=== PATIENT | female | born 1990 | race Caucasian/White ===

== ENCOUNTER 2022-02-20 15:29 | Emergency (ER) | payer MEDICAID, SELFPAY ==
[2022-02-20 15:42] VITALS: BP 97/68; PULSE 102; RESP 16; TEMP 37.6; O2SAT 98
--- NOTE | 2022-02-20 16:58 | ED.GENADUL_ITS ---
Discharge Plan Disposition Patient Disposition: HOME Condition: Stable Discharge Details Clinical Impression: Upper respiratory infection Primary Care Provider: None,None ED Provider: Dilma Soto Home Meds and New Rx's Prescriptions: New ondansetron 4 mg tablet,disintegrating 4 mg PO Q8H PRNQty: 10 0RF Discharge Instructions Instructions: Upper Respiratory Infection (ED) Additional Instructions: Take ibuprofen and Tylenol as needed for fever control Keep your self hydrated Take Zofran as needed for nausea and vomiting Isolate until the results of your COVID test returns Return earlier should you have new or worsening complaints You have been placed for follow-up with primary care physician to establish care Stand Alone Forms: PENDING COVID-19 TESTING, Work Release Discharge Data Discharge Date/Time-TO BE ENTERED AT DEPARTURE: 02/20/22 17:33 HPI General Date/Time Provider Initiated Documentation: 02/20/22 15:47 . HPI Narrative: This 31-year-old female presents with cold symptoms of started on Friday. She presents for fever and runny nose. She is also had sore throat. She has had intermittent nausea without vomiting. She denies any chance of . She denies any rashes or lesions. Her daughter is reportedly sick with similar symptoms. She had a COVID test at home that was reportedly negative. She denies any chest pain or shortness of breath. She has any rashes or lesions. She states she feels tired. Related Data Home Medications Medication Instructions Recorded Confirmed ondansetron 4 mg disintegrating 4 mg PO Q8H PRN #10 tabs 02/20/22 tablet Previous Rx's Medication Instructions Recorded ondansetron 4 mg disintegrating 4 mg PO Q8H PRN #10 tabs 02/20/22 tablet Allergies Allergy/AdvReac Type Severity Reaction Status Date / Time omeprazole AdvReac Intermediate rash/swelling Unverified 02/20/22 15:50 in tongue/dizzy valerian AdvReac Intermediate stomach Unverified 02/20/22 15:50 issues amoxicillin AdvReac Unknown Unverified 02/20/22 15:50 General Stated Complaint: RespSymp RUTH: 3 Review of Systems All systems reviewed & are unremarkable except as noted in HPI and below PFSH All Active Problems (Updated 02/20/22 @ 17:01 by RUTH ANN Dumont) Upper respiratory infection (Acute) Social History Smoking/Tobacco Use Status: Current-Occasional Tobacco Type: cigars Smoking risk assessment performed?: Yes Alcohol Intake: current Alcohol Intake frequency: holidays/special occasions only Drug use: Never Substance use type: does not use Do you feel safe at home: Yes Do you feel safe in your relationship?: Yes Exam Const General: cooperative, comfortable and no acute distress HENMT Other: Uvula midline, maintaining secretions No trismus, maintaining hydration, no appetite Resp Effort & Inspection: normal respiratory effort Cardio Rate: regular rate GI Inspection: normal to inspection Skin General skin exam: no rashes or lesions noted Neuro General: patient alert and patient oriented x3 Course Vital Signs Vital signs: Vital Signs Temperature 37.6 C H 02/20/22 15:42 Pulse 102 H 02/20/22 15:42 Respiratory Rate 16 02/20/22 15:42 Blood Pressure 97/68 L 02/20/22 15:42 Pulse Oximetry 98 02/20/22 15:42 Temperature 37.6 C H 02/20/22 15:42 Temperature Source Tympanic 02/20/22 15:42 Pulse 102 H 02/20/22 15:42 Respiratory Rate 16 02/20/22 15:42 Respiratory Effort 02/20/22 15:53 Blood Pressure 97/68 L 02/20/22 15:42 Blood Pressure Position Sitting 02/20/22 15:42 Pulse Oximetry 98 02/20/22 15:42 Oxygen Delivery Method Room Air 02/20/22 15:42 Oxygen Flow Rate 0 02/20/22 15:42 Pain Level 7 02/20/22 15:42 Comment has not taken otc medications recently 02/20/22 15:42
--- NOTE | 2022-02-20 16:58 | NUR.NOTE ---
Nursing Note: Referral given to Care Management for needs PCP; establish care; routine follow up.
[2022-02-20 17:07] LABS: Source Nasal/Nares
[2022-02-20 17:47] LABS: COVID-19 PCR Negative (Negative)
--- NOTE | 2022-02-24 10:52 | CMACTNOTE_ITS ---
- If Service Date Differs Date of service: 02/24/22 Time of Service: 10:52 Care Management Activity Note Annabel is seen in the ED for an upper respiratory infection. At the request of ED provider, CM coordinates a referral to MIRNA Connor, [employer]GY CONSERVATION TECHNICIAN-BC, of [facility], on-call provider, to assist Annabel in obtaining a follow up appointment and in establishing care with a PCP. She has Medicaid for insurance.
== END 2022-02-20 17:33 | disposition home or self-care (01) ==
PROVIDERS: Emergency Provider Physician Assistant
DX: J06.9 Acute upper respiratory infection, unspecified (principal); R11.2 Nausea with vomiting, unspecified; F17.290 Nicotine dependence, other tobacco product, uncomplicated; Z20.822 Contact with and (suspected) exposure to COVID-19
CPT/HCPCS: 87635; 99283; 99284

== ENCOUNTER 2022-05-03 01:40 | Emergency (ER) | payer MEDICAID, SELFPAY ==
[2022-05-03 01:40] VITALS: BP 138/83; PULSE 84; RESP 16; TEMP 37; O2SAT 100
--- NOTE | 2022-05-03 01:45 | DI.RAD_ITS ---
Exam(s) XR RIBS LT W PA LAT CHEST EXAM: XR RIBS LT W PA LAT CHEST CLINICAL HISTORY: cough, left rib pain, r/o pneumonia/ fracture. TECHNIQUE: 2D digital imaging was performed. COMPARISON: No exams were available for comparison FINDINGS: Total 7 views: Left ribs-five views: No left rib fractures identified. No rib lesions. Chest-two views: Heart size normal. Mediastinum not widened. Lungs are clear. No pleural effusions . No pneumothorax. IMPRESSION: No left rib fracture seen. Lungs are clear. DATA REPOSITORY: RADIATION DOSE DELIVERED:
[2022-05-03] MEDS: Lidocaine 5% Patch 1 PATCH (02:02)
--- NOTE | 2022-05-03 02:05 | ED.GENADUL_ITS ---
Discharge Plan Disposition Patient Disposition: HOME Condition: Good Discharge Details Clinical Impression: Rib pain on left side Primary Care Provider: Unknown,Unknown ED Provider: Shan Monahan Home Meds and New Rx's Prescriptions: New benzonatate 100 mg capsule 100 mg PO TID Qty: 30 0RF lidocaine [Lidoderm] 5 % adhesive patch,medicated 1 patch Topical Q24H Qty: 15 0RF No Action ondansetron 4 mg tablet,disintegrating 4 mg PO Q8H PRNQty: 10 0RF Discharge Instructions Instructions: Chest Wall Pain (ED) Additional Instructions: At this time the chest x-ray shows no evidence of major pneumonia, fracture, or other abnormality. You may certainly have a small rib fracture that we just cannot see on the x-rays. Please use the Lidoderm patches as directed. Please continue to take Tylenol and Motrin as needed. Additionally I have sent a prescription for a cough pill to your pharmacy on file. Please take this as directed to help with your cough. If you notice any worsening of your symptoms, or any new symptoms such as vomiting, diarrhea, fever, chills, shortness of breath, chest pain, numbness, weakness, or fainting , please return immediately to the emergency department for reevaluation. Please follow up with your primary care provider as soon as possible for reassessment and reevaluation. As always, it was a pleasure participating in your medical care today. Medical Decision Making 31-year-old female with a past medical history of tobacco use, presents today for left rib pain. Patient has had a mild cough/upper respiratory infection for the last few weeks. It is gradually been stable/improving however today during one of her normal morning coughing episode she felt a snap/pop in her left ribs, and shortly thereafter developed notable pain which is worsened throughout the day. She has taken Tylenol and Motrin without significant improvement. Pain is made worse with movement and palpation of the left ribs, and also breathing and coughing. She denies any history of blood clots or PE. She denies any hemoptysis. She denies any fever or chills. No other complaints at this time. No other generalized chest pain. Chest pain is focal into the left by the ribs Physical exam demonstrates focal left-sided rib tenderness at ribs 6 and 7. No pain above or below that area. No other tenderness. No rash. No diminished lung sounds to suggest significant pneumothorax. Symptoms inconsistent with PE. Symptoms most concerning for rib sprain, or potential rib fracture from cough. We will get an x-ray to evaluate for this, and also check for potential pneumonia that could have been causing the cough. We will give Lidoderm patch, Tessalon Perle, monitor closely and reassess. Symptoms inconsistent with ACS 4:22 AM Patient is feeling much better after the Tessalon Perle and the Lidoderm patch. Chest x-ray and rib x-ray are negative for acute process per virtual radiology. Patient stable for discharge. Suspect rib contusion or small fracture that we cannot see. No pneumothorax. Potential muscle strain. Will give Tessalon Perles and a Lidoderm patch for home use. I have extensively reviewed the treatment plan and discharge instructions with the patient. I have addressed all patient concerns at this time. The patient was made aware of what symptoms to monitor for that would warrant a return to the emergency department. Discussed the plan with the patient, they demonstrate verbal understanding and agreement with our assessment and plan at this time. The documentation in this chart was dictated using Cover dictation software. Please excuse any dictation errors. FINDINGS: Bones/joints: No left rib fractures are identified. Soft tissues: Unremarkable. IMPRESSION: No left rib fractures identified. FINDINGS: Lungs: The lungs are clear and well aerated bilaterally. There is no consolidation, infiltrate, or pulmonary edema. The pulmonary vasculature is normal in caliber. Pleural spaces: Unremarkable. No pleural effusion or pneumothorax. Heart/Mediastinum: Heart size and cardiomediastinal contours are normal. Bones/joints: Unremarkable. IMPRESSION: No active disease in the chest. Thank you for allowing us to participate in the care of your patient. Dictated and Authenticated by: Amaris Hale MD 05/03/2022 4:20 AM Eastern Time ([place] & [place]) HPI General Date/Time Provider Initiated Documentation: 05/03/22 01:50 . HPI Narrative: 31-year-old female with a past medical history of tobacco use, presents today for left rib pain. Patient has had a mild cough/upper respiratory infection for the last few weeks. It is gradually been stable/improving however today during one of her normal morning coughing episode she felt a snap/pop in her left ribs, and shortly thereafter developed notable pain which is worsened throughout the day. She has taken Tylenol and Motrin without significant improvement. Pain is made worse with movement and palpation of the left ribs, and also breathing and coughing. She denies any history of blood clots or PE. She denies any hemoptysis. She denies any fever or chills. No other complaints at this time. No other generalized chest pain. Chest pain is focal into the left by the ribs Related Data Home Medications Medication Instructions Recorded Confirmed ondansetron 4 mg disintegrating 4 mg PO Q8H PRN #10 tabs 02/20/22 05/03/22 tablet benzonatate 100 mg capsule 100 mg PO TID #30 caps 05/03/22 lidocaine 5 % topical patch 1 patch topical Q24H #15 ea 05/03/22 (Lidoderm) Previous Rx's Medication Instructions Recorded ondansetron 4 mg disintegrating 4 mg PO Q8H PRN #10 tabs 02/20/22 tablet benzonatate 100 mg capsule 100 mg PO TID #30 caps 05/03/22 lidocaine 5 % topical patch 1 patch topical Q24H #15 ea 05/03/22 (Lidoderm) Allergies Allergy/AdvReac Type Severity Reaction Status Date / Time omeprazole AdvReac Intermediate rash/swelling Unverified 05/03/22 01:47 in tongue/dizzy valerian AdvReac Intermediate stomach Unverified 05/03/22 01:47 issues amoxicillin AdvReac Unknown Unverified 05/03/22 01:47 General Stated Complaint: Chest/Rib RUTH: 3 Review of Systems All systems reviewed & are unremarkable except as noted in HPI and below PFSH All Active Problems (Updated 05/03/22 @ 04:03 by Shan Monahan DO) Rib pain on left side (Acute) Social History Smoking/Tobacco Use Status: Current-Occasional Tobacco Type: cigars Smoking risk assessment performed?: Yes Alcohol Intake: current Alcohol Intake frequency: holidays/special occasions only Drug use: Never Substance use type: does not use Do you feel safe at home: Yes Do you feel safe in your relationship?: Yes Exam Narrative Exam Narrative: 1.Const: Well-nourished, Well-developed, appearing stated age 2.Eyes: PERRL, no conjunctival injection, and symmetrical lids. 3.ENT: Atraumatic external nose and ears. Moist MM. Neck: Symmetric, trachea midline, No thyromegaly. 4.CVS: +S1/S2, No murmurs or gallops. Peripheral pulses 2+ and equal in all extremities. Brisk capillary refill in all extremities. 5.RESP: Unlabored respiratory effort. Clear to auscultation bilaterally. No wheezes rales or rhonchi. Notable reproducible left-sided rib tenderness at ribs 6 and 7 on the left lateral aspect. No pain at rib 8 or rib 5. Pain is focal. No rash 6.GI: Soft, Nontender/Nondistended, No hepatosplenomegaly. No guarding or rebound. 7.MSK: Normocephalic/Atraumatic, Extremities w/o deformity or ttp No cyanosis or clubbing, Normal movement of all extremities 8.Skin: Warm, Dry. No rashes or lesions. 9.Neuro: technical support representative II-XII grossly intact. Sensation grossly intact, no focal neurologic deficits. 10.Psych: (AAO) x3. Appropriate mood and affect Course Vital Signs Vital signs: Vital Signs Temperature 37.0 C 05/03/22 01:40 Pulse 84 05/03/22 01:40 Respiratory Rate 16 05/03/22 01:40 Blood Pressure 138/83 05/03/22 01:40 Pulse Oximetry 100 05/03/22 01:40 Temperature 37.0 C 05/03/22 01:40 Temperature Source Temporal Artery Scan 05/03/22 01:40 Pulse 84 05/03/22 01:40 Respiratory Rate 16 05/03/22 01:40 Respiratory Effort 05/03/22 01:47 Respiratory Depth Normal 05/03/22 01:47 Respiratory Pattern Normal 05/03/22 01:47 Blood Pressure 138/83 05/03/22 01:40 Blood Pressure Position Sitting 05/03/22 01:40 Pulse Oximetry 100 05/03/22 01:40 Oxygen Delivery Method Room Air 05/03/22 01:40 Oxygen Flow Rate 0 05/03/22 01:40 Pain Level 10 05/03/22 01:47
[2022-05-03] MEDS: Benzonatate 100 MG CAP PO (02:12)
[2022-05-03 02:44] LABS: COVID-19 PCR Negative (Negative); Influenza A PCR Negative (Negative); Influenza B PCR Negative (Negative); RSV PCR Negative (Negative)
[2022-05-03 02:46] LABS: Source Nasopharynx
--- NOTE | 2022-05-03 04:21 | DI.VRAD_ITS ---
PROCEDURE INFORMATION: Exam: XR Left Ribs Exam date and time: 05/03/2022 2:59 AM Age: 31 years old Clinical indication: Other: Cough, left rib pain, R/O pneumonia/ fracture TECHNIQUE: Imaging protocol: Radiologic exam of the Left ribs. Views: 2 views. COMPARISON: No relevant prior studies available. FINDINGS: Bones/joints: No left rib fractures are identified. Soft tissues: Unremarkable. IMPRESSION: No left rib fractures identified. PROCEDURE INFORMATION: Exam: XR Chest Exam date and time: 05/03/2022 2:59 AM Age: 31 years old Clinical indication: Other: Cough, left rib pain, R/O pneumonia/ fracture TECHNIQUE: Imaging protocol: Radiologic exam of the chest. Views: 2 views. COMPARISON: No relevant prior studies available. FINDINGS: Lungs: The lungs are clear and well aerated bilaterally. There is no consolidation, infiltrate, or pulmonary edema. The pulmonary vasculature is normal in caliber. Pleural spaces: Unremarkable. No pleural effusion or pneumothorax. Heart/Mediastinum: Heart size and cardiomediastinal contours are normal. Bones/joints: Unremarkable. IMPRESSION: No active disease in the chest. Dictated and Authenticated by: Amaris Hale MD. Ordering:HANY Torrez MD
[2022-05-03 05:18] VITALS: BP 101/61; PULSE 94; RESP 18; O2SAT 94
--- NOTE | 2022-05-04 07:34 | NUR.NOTE ---
Nursing Note: MARIJA Maloney, called asking for patients Medicaid number so that they could put her in their system. She was picked up by MARIJA yesterday morning around 0530. I gave them the number.
== END 2022-05-03 05:21 | disposition home or self-care (01) ==
PROVIDERS: Emergency Provider Student in an Organized Health Care Education/Training Program
DX: G89.11 Acute pain due to trauma (principal); R07.81 Pleurodynia; Z20.822 Contact with and (suspected) exposure to COVID-19; X50.1XXA Overexertion from prolonged static or awkward postures, initial encounter
CPT/HCPCS: 87637; 99283; 71046; 71100; 99284

== ENCOUNTER 2023-02-27 17:56 | Emergency (ER) | payer MEDICAID, SELFPAY ==
[2023-02-27 18:06] VITALS: BP 91/61; PULSE 89; RESP 18; TEMP 36.9; O2SAT 97
--- NOTE | 2023-02-27 18:20 | ED.GENADUL_ITS ---
Discharge Plan Disposition Patient Disposition: Home Condition: Good Discharge Details Clinical Impression: Ear pain, left Primary Care Provider: None,None ED Provider: Alba Singh Home Meds and New Rx's Prescriptions: New cetirizine 10 mg tablet,chewable 10 mg PO DAILY Qty: 14 0RF cefdinir 300 mg capsule 300 mg PO BID Qty: 10 0RF No Action ondansetron 4 mg tablet,disintegrating 4 mg PO Q8H PRNQty: 10 0RF benzonatate 100 mg capsule 100 mg PO TID Qty: 30 0RF lidocaine [Lidoderm] 5 % adhesive patch,medicated 1 patch Topical Q24H Qty: 15 0RF Discharge Instructions Instructions: Earache (ED) Additional Instructions: Follow up with your primary care doctor as soon as you are able to see them. return to the emergency department for new or worsening symptoms. Medical Decision Making 32yo previously healthy female presenting this three weeks of left ear stuffiness and muffled hearing'; occasional twinges of sharp pain inside her ear. Vital signs reassuring. No clear otitis media on exam; there is some effusion. + ear wax but not in a quantity to affect hearing. No visualized otitis externa or choleostoma. Mastoid nontender; not concerned for mastoiditis. Patient strongly prefers antibiotic treatment and is not able to see her PCP for the next three weeks; out of an abundance of caution will treat with short course of cefdnir (pt with allergy to amoxicillin). Cetirizine as well for symptoms. Discharged home; discharge instructions including return precautions were reviewed with patient who verbalized understanding. All questions were answered and they are in full agreement with the plan. HPI General Date/Time Provider Initiated Documentation: 02/27/23 18:10 . Limitations to Documentation: no limitations . Information obtained by: patient . HPI Narrative: 32yo previously healthy female presenting this three weeks of left ear stuffiness. Occasional twinges of sharp pain inside her ear. Has tried rubbing her ear with no relief. Reports frequent ear infections as a child that felt similar. Does not currently have a PCP (1st appointment scheduled in March). She is otherwise in her usual state of health with no fevers, chills, rash, malaise, headache, external ear pain, or other concerns. Related Data Home Medications Medication Instructions Recorded Confirmed ondansetron 4 mg disintegrating 4 mg PO Q8H PRN #10 tabs 02/20/22 05/03/22 tablet benzonatate 100 mg capsule 100 mg PO TID #30 caps 05/03/22 lidocaine 5 % topical patch 1 patch topical Q24H #15 ea 05/03/22 (Lidoderm) cefdinir 300 mg capsule 300 mg PO BID #10 caps 02/27/23 cetirizine 10 mg chewable tablet 10 mg PO DAILY #14 tabs 02/27/23 Previous Rx's Medication Instructions Recorded ondansetron 4 mg disintegrating 4 mg PO Q8H PRN #10 tabs 02/20/22 tablet benzonatate 100 mg capsule 100 mg PO TID #30 caps 05/03/22 lidocaine 5 % topical patch 1 patch topical Q24H #15 ea 05/03/22 (Lidoderm) cefdinir 300 mg capsule 300 mg PO BID #10 caps 02/27/23 cetirizine 10 mg chewable tablet 10 mg PO DAILY #14 tabs 02/27/23 Allergies Allergy/AdvReac Type Severity Reaction Status Date / Time omeprazole AdvReac Intermediate rash/swelling Unverified 05/03/22 01:47 in tongue/dizzy valerian AdvReac Intermediate stomach Unverified 05/03/22 01:47 issues amoxicillin AdvReac Unknown Unverified 05/03/22 01:47 General Stated Complaint: EarProblem RUTH: 4 Review of Systems Narrative: see HPI PFSH All Active Problems (Updated 02/27/23 @ 18:23 by Alba Singh MD) Ear pain, left (Acute) Social History Smoking/Tobacco Use Status: Current-Occasional Tobacco Type: cigars Smoking risk assessment performed?: Yes Alcohol Intake: current Alcohol Intake frequency: holidays/special occasions only Drug use: Never Substance use type: does not use Do you feel safe at home: Yes Do you feel safe in your relationship?: Yes Exam Narrative Exam Narrative: General: Alert, well appearing, well nourished, in no acute distress. Head: Normocephalic, atraumatic Neck: Trachea midline, Neck supple. ENT: MMM. No oropharygeal lesions or exudate. Right TM clear. Left TM with no injection, slight bulging. +wax in ear canal Cardiac: No cyanosis Resp: No respiratory distress. Speaking in full sentences. Abd: Non-distended Extremities: No deformities. Neurologic: GCS 15. Moves all extremities freely against gravity Course Vital Signs Vital signs: Vital Signs Temperature 36.9 C 02/27/23 18:06 Pulse 89 02/27/23 18:06 Respiratory Rate 18 02/27/23 18:06 Blood Pressure 91/61 L 02/27/23 18:06 Pulse Oximetry 97 02/27/23 18:06 Temperature 36.9 C 02/27/23 18:06 Pulse 89 02/27/23 18:06 Respiratory Rate 18 02/27/23 18:06 Respiratory Effort Normal, Non-Labored 02/27/23 18:11 Blood Pressure 91/61 L 02/27/23 18:06 Blood Pressure Position Sitting 02/27/23 18:06 Pulse Oximetry 97 02/27/23 18:06 Oxygen Delivery Method Room Air 02/27/23 18:06 Oxygen Flow Rate 0 02/27/23 18:06 Pain Level 0 02/27/23 18:06
[2023-02-27] MEDS: Cetirizine 10 MG TAB PO (19:05)
[2023-02-27] MEDS: Cefdinir 300 MG CAP 600 MG PO (19:05)
== END 2023-02-27 19:11 | disposition home or self-care (01) ==
PROVIDERS: Emergency Provider Student in an Organized Health Care Education/Training Program
DX: H92.02 Otalgia, left ear (principal); F17.290 Nicotine dependence, other tobacco product, uncomplicated
CPT/HCPCS: 99283; 99282

== ENCOUNTER 2023-08-04 13:09 | Emergency (ER) | payer MEDICAID, SELFPAY ==
--- NOTE | 2023-08-04 13:00 | RT.EKG_ITS ---
APPROVED REPORT Exam: Resting ECG Reason for Exam: syncope Patient Location: E HR:69 bpm ECG Measurements Heart Rate 69 AXIS CO 147 P 58 QRSd 85 QRS 54 QT 389 T 61 QTc 418 Conclusion Sinus rhythm...normal P axis, V-rate 60- 99
[2023-08-04 13:13] VITALS: BP 109/70; PULSE 80; RESP 20; TEMP 36.9; O2SAT 99
--- NOTE | 2023-08-04 13:43 | W.ED.GENAD ---
HPI General Date/Time Provider Initiated Documentation: 08/04/23 13:22. Limitations to Documentation: no limitations. Information obtained by: patient, RN notes reviewed and old records reviewed. HPI Narrative: 32-year-old female presents to the ER with a chief complaint of near syncope, weak nests nausea, reports that she has been feeling out of it, disoriented. She reports being under a lot of stress in the last couple weeks. Questioning diagnosis of Monse-Danlos syndrome. She does have a history of iron deficiency anemia and she just finished her.. She also reports some upset stomach and an IBS type symptoms. She did not hit her head or fall to the ground. She is not taking any medications today. She reports that she is out of her Zofran. Related Data Home Medications Medication Instructions Recorded Confirmed lidocaine 5 % topical patch 1 patch topical Q24H #15 ea 05/03/22 (Lidoderm) ondansetron 4 mg disintegrating 4 mg PO Q8H PRN nausea and 08/04/23 tablet vomiting #10 tabs Previous Rx's Medication Instructions Recorded lidocaine 5 % topical patch 1 patch topical Q24H #15 ea 05/03/22 (Lidoderm) ondansetron 4 mg disintegrating 4 mg PO Q8H PRN nausea and 08/04/23 tablet vomiting #10 tabs Allergies Allergy/AdvReac Type Severity Reaction Status Date / Time omeprazole AdvReac Intermediate rash/swelling Unverified 05/03/22 01:47 in tongue/dizzy valerian AdvReac Intermediate stomach Unverified 05/03/22 01:47 issues amoxicillin AdvReac Unknown Unverified 05/03/22 01:47 General Stated Complaint: Dizzy/Sync RUTH: 3 Review of Systems All systems reviewed & are unremarkable except as noted in HPI and below Constitutional Constitutional: Reports as per HPI and Denies headache(s) ENT Ears, Nose, Mouth, and Throat: Reports dizziness, Denies headache(s) and Reports disequilibrium Gastrointestinal Gastrointestinal: Reports nausea Neurologic Neurologic: Reports as per HPI, Reports dizziness, Denies headache(s), Denies localized weakness, Denies memory loss and Reports disequilibrium Psychiatric Psychiatric: Denies memory loss Exam Narrative Exam Narrative: Constitutional: Alert and oriented x3. Appears stated age. Normal body habitus. Head: Normocephalic, no trauma. Eyes: Pupils PERRL, Red reflex noted, EOM's intact. Eyelids symmetrical without lesions, discharge, or swelling. ENT: Bilateral TM's WNL, External ear normal to inspection, no mastoid TTP, swelling, Chest: RRR, Normal S1, S2, distal pulses intact. Resp: Lungs clear to auscultation bilaterally, no wheezes, rales, or rhonchi. Abdomen: Soft, non-distended, Normoactive bowel sounds all 4 quads. Musculoskeletal: Normal gait, 5/5 strength to all four extremities. Skin: No suspicious rashes or lesions. Capillary refill less than 2 sec. Neurologic: Cranial nerves II-XII intact. Alert and oriented x 3. Motor: No deficits noted. Sensory: Intact bilaterally all 4 extremities. Hematologic/Lymphatic: No ecchymosis, no lymphadenopathy. Course Vital Signs Vital signs: Vital Signs Temperature 36.9 C 08/04/23 13:13 Pulse 80 08/04/23 13:13 Respiratory Rate 20 08/04/23 13:13 Blood Pressure 109/70 08/04/23 13:13 Pulse Oximetry 99 08/04/23 13:13 Temperature 36.9 C 08/04/23 13:13 Temperature Source Temporal Artery Scan 08/04/23 13:13 Pulse 80 08/04/23 13:13 Respiratory Rate 20 08/04/23 13:13 Respiratory Effort Normal 08/04/23 13:37 Blood Pressure 109/70 08/04/23 13:13 Blood Pressure Position Sitting 08/04/23 13:13 Pulse Oximetry 99 08/04/23 13:13 Oxygen Delivery Method Room Air 08/04/23 13:13 Oxygen Flow Rate 0 08/04/23 13:13 Pain Level 5 08/04/23 13:13 Medical Decision Making 32-year-old female presents to the ER with a chief complaint of near syncope, weak nests nausea, reports that she has been feeling out of it, disoriented. She reports being under a lot of stress in the last couple weeks. Questioning diagnosis of Monse-Danlos syndrome. She does have a history of iron deficiency anemia and she just finished her.. She also reports some upset stomach and an IBS type symptoms. She did not hit her head or fall to the ground. She is not taking any medications today. She reports that she is out of her Zofran. Workup ordered including CBC CMP, urinalysis UDS urine test liter normal saline. EKG done by triage nurse staff. Shows sinus rhythm. No ectopy. Labs show no leukocytosis, no anemia, TSH slightly elevated at 3.86, T4 added on, 2 labs, urinalysis shows no evidence for UTI, negative urine drug screen. Liter normal saline was given. 1450: Patient reevaluation she reports she feels somewhat better. She still is complaining of some nausea. Will give her 4 mg Zofran ODT. Discussed labs with her including TSH was just slightly elevated. She reports that she has had hypothyroidism in the past. She is requesting a work note. Will give her a prescription for Zofran and strict return instructions and follow-up care. Differential diagnosis includes but not limited to hypothyroidism, anxiety, dehydration, migraine, viral syndrome. Lab Data Lab results reviewed: Yes I reviewed the patient's lab results. Labs: Laboratory Tests Range/Units 08/04/23 08/04/23 13:53 13:55 WBC (4.4-10.8) 10^3/uL 4.69 RBC (3.93-5.22) 10^6/uL 4.47 Hgb (11.2-15.7) g/dL 12.3 Hct (36.0-46.0) % 38.4 MCV (80-95) fL 86 MCH (27.0-33.0) pg 27.5 MCHC (32.0-36.0) % 32.0 RDW (11.7-14.6) % 13.5 Plt Count (130-400) 10^3/uL 189 MPV (8.0-11.0) fL 11.1 H Immature Gran % 0.2 Neutrophils % 48.0 Lymphocytes % 35.6 Monocytes % 9.6 Eosinophils % 5.5 Basophils % 1.1 Nucleated RBC % (0.0-0.3) % 0.0 Absolute Neutrophils (1.2-6.7) 10^3/uL 2.25 Absolute Lymphocytes (1.2-3.4) 10^3/uL 1.67 Absolute Monocytes (0.1-0.8) 10^3/uL 0.45 Absolute Eosinophils (0.0-0.7) 10^3/uL 0.26 Absolute Basophils (0.0-0.2) 10^3/uL 0.05 Sodium (136-145) mmol/L 140 Potassium (3.5-5.1) mmol/L 3.9 Chloride (98-107) mmol/L 106 Carbon Dioxide (21.0-32.0) mmol/L 24.9 Anion Gap (3-11) mmol/L 9.1 BUN (7-18) mg/dL 12 Creatinine (0.55-1.02) mg/dL 0.8 Est GFR (CKD-EPI 2020) (mL/min/1.73m2) 99.09 Glucose (74-106) mg/dL 96 Calcium (8.5-10.1) mg/dL 8.5 Magnesium (1.8-2.4) mg/dL 2.0 Total Bilirubin (0.2-1.0) mg/dL 0.3 AST (15-37) U/L 9 L ALT (14-59) U/L 16 Alkaline Phosphatase (46-116) U/L 55 Total Protein (6.4-8.2) g/dL 6.7 Albumin (3.4-5.0) g/dL 3.6 TSH (0.36-3.74) uIU/mL 3.86 H Urine Color (Yellow) Yellow Urine Clarity (Clear) Clear Urine pH (5-8) 7.0 Ur Specific [place] (1.005-1.025) 1.025 Urine Protein (Negative) mg/dL Negative Urine Ketones (Negative) mg/dL Negative Urine Blood (Negative) Negative Urine Nitrite (Negative) Negative Urine Bilirubin (Negative) Negative Urine Urobilinogen (Up to 0.2) mg/dL 0.2 Ur Leukocyte Esterase (Negative) Negative Urine Glucose (Negative) mg/dL Negative Urine Opiates Screen (Negative) Negative Urine Methadone Screen (Negative) Negative Ur Barbiturates Screen (Negative) Negative Ur Tricyclics Screen (Negative) Negative Ur Amphetamines Screen (Negative) Negative U Benzodiazepines Scrn (Negative) Negative Urine Cocaine Screen (Negative) Negative Ur THC Screen (Negative) Negative Quality:SDOH Health Related Social Needs: No Data to Display PFSH All Active Problems (Updated 08/04/23 @ 15:00 by Latonia Crabtree NP) Elevated TSH (Acute) Near syncope (Acute) Social History (Reviewed 05/03/22 @ 02:06 by CATY Mobley Smoking/Tobacco Use Status: Current-Occasional Tobacco Type: cigars Smoking risk assessment performed?: Yes Alcohol Intake: current Alcohol Intake frequency: holidays/special occasions only Drug use: Never Substance use type: does not use Do you feel safe at home: Yes Do you feel safe in your relationship?: Yes Discharge Plan Disposition Patient Disposition: Home Condition: Stable Discharge Details Clinical Impression: Near syncope, Elevated TSH Primary Care Provider: Unknown,Unknown ED Provider: Latonia Crabtree Home Meds and New Rx's Prescriptions: Continued ondansetron 4 mg tablet,disintegrating 4 mg PO Q8H PRN (Reason: nausea and vomiting) Qty: 10 0RF Rx Instructions: Take 1 tablet by mouth up to 3 times daily as needed for nausea and vomiting. No Action lidocaine [Lidoderm] 5 % adhesive patch,medicated 1 patch Topical Q24H Qty: 15 0RF Discharge Instructions Instructions: Near Syncope (ED) Additional Instructions: No evidence of urinary tract infection, EKG and labs are within normal limits. No evidence of anemia. Did have slightly elevated TSH level at 3.86. A T4 level was added on and is pending at this time. Follow up with primary care provider in 3-5 days. Return to ED sooner if any worsening or concerns. Increase oral fluids. Please take Tylenol or Ibuprofen with food every 4-6 hours as needed for pain and swelling. Stand Alone Forms: Work Release Referrals: [facility] [Provider Group] [facility] [Provider Group]
[2023-08-04] MEDS: Normal Saline 1,000 ML 1000 ML IV (14:04)
[2023-08-04 14:05] LABS: Abs Immature Grans 0.01 10^3/uL (0.0-0.06); Absolute Basophil Count 0.05 10^3/uL (0.0-0.2); Absolute Eosinophil Count 0.26 10^3/uL (0.0-0.7); Absolute Lymphocyte Count 1.67 10^3/uL (1.2-3.4); Absolute Monocyte Count 0.45 10^3/uL (0.1-0.8); Absolute Neutrophil Count 2.25 10^3/uL (1.2-6.7); Basophils % 1.1; Eosinophils % 5.5; HCT 38.4 % (36.0-46.0); HGB 12.3 g/dL (11.2-15.7); Immature Grans % 0.2; Lymphocytes % 35.6; MCH 27.5 pg (27.0-33.0); MCV 86 fL (80-95); MPV 11.1 fL (8.0-11.0); Monocytes % 9.6; Platelet Count 189 10^3/uL (130-400); RBC 4.47 10^6/uL (3.93-5.22); RDW 13.5 % (11.7-14.6); RDW-SD 42.3 fL; WBC 4.69 10^3/uL (4.4-10.8)
[2023-08-04 14:12] LABS: Bilirubin Negative (Negative); Blood Negative (Negative); Clarity Clear (Clear); Glucose Negative (Negative); Ketones Negative (Negative); Leukocyte Esterase Negative (Negative); Nitrite Negative (Negative); Specific Gravity 1.025 (1.005-1.025); Urobilinogen 0.2 mg/dL (Up to 0.2)
[2023-08-04 14:20] LABS: *AMPHETAMINES SCREEN URINE Negative (Negative); *BARBITURATES SCREEN URINE Negative (Negative); *BENZODIAZEPINES SCREEN URINE Negative (Negative); Cannabinoids THC Negative (Negative); Cocaine Screen,Urine Negative (Negative); METHADONE URINE SCREEN Negative (Negative); OPIATES URINE SCREEN Negative (Negative)
[2023-08-04 14:21] LABS: Tricyclic Antidepressants Negative (Negative)
[2023-08-04 14:28] LABS: ALT 16 U/L (14-59); AST 9 U/L (15-37); Albumin 3.6 g/dL (3.4-5.0); Alkaline Phosphatase 55 U/L (46-116); Anion Gap 9.1 mmol/L (3-11); BUN 12 mg/dL (7-18); Bilirubin, Total 0.3 mg/dL (0.2-1.0); CO2 24.9 mmol/L (21.0-32.0); CREATININE 0.8 mg/dL (0.55-1.02); Calcium 8.5 mg/dL (8.5-10.1); Chloride 106 mmol/L (98-107); Estimated GFR 99.09 (mL/min/1.73m2); Glucose 96 mg/dL (74-106); Potassium 3.9 mmol/L (3.5-5.1); Sodium 140 mmol/L (136-145); TSH 3.86 uIU/mL (0.36-3.74); Total Protein 6.7 g/dL (6.4-8.2)
[2023-08-04 14:46] VITALS: BP 106/52; PULSE 92; RESP 26; O2SAT 98
[2023-08-04 15:28] LABS: T4 8.2 ug/dL (4.7-13.3)
== END 2023-08-04 15:19 | disposition home or self-care (01) ==
PROVIDERS: Emergency Provider Registered Nurse Emergency
DX: R55 Syncope and collapse (principal); R94.6 Abnormal results of thyroid function studies; F17.290 Nicotine dependence, other tobacco product, uncomplicated
CPT/HCPCS: 80053; 80307; 81025; 93005; 96360; 99284; 81003; 83735; 84436; 84443; 85025; 93010; 99283

== ENCOUNTER 2023-08-10 21:06 | Emergency (ER) | payer MEDICAID, SELFPAY ==
[2023-08-10 21:08] VITALS: BP 121/75; PULSE 88; RESP 18; TEMP 36.4; O2SAT 100
--- NOTE | 2023-08-10 21:15 | RT.EKG_ITS ---
APPROVED REPORT Exam: Resting ECG Reason for Exam: Syncope Patient Location: E HR:75 bpm ECG Measurements Heart Rate 75 AXIS GA 140 P 57 QRSd 88 QRS 56 QT 388 T 63 QTc 435 Conclusion sinus 75 no stemi v6 lead absent
--- NOTE | 2023-08-10 21:25 | ED.GENADUL_ITS ---
HPI General Date/Time Provider Initiated Documentation: 08/10/23 21:21 . HPI Narrative: 32 year-old female presents to ED today by POV/ambulating with friend with a chief complaint of dizzy spells, lightheadedness, near fainting daily this week since being seen with negative work-up on friday. Quality described as chest pressure, weakness, no radiation to chest pain, exertional onset, fever, nausea/vomiting, abdominal pain, GI bleeding, black stools. Severity is described as 6-7/10. Palliating factors include nothing specific. Provoking factors include nothing specific. Patient not anticoagulated. Related Data Home Medications Medication Instructions Recorded Confirmed lidocaine 5 % topical patch 1 patch topical Q24H #15 ea 05/03/22 08/10/23 (Lidoderm) ondansetron 4 mg disintegrating 4 mg PO Q8H PRN nausea and 08/04/23 08/10/23 tablet vomiting #10 tabs Previous Rx's Medication Instructions Recorded lidocaine 5 % topical patch 1 patch topical Q24H #15 ea 05/03/22 (Lidoderm) ondansetron 4 mg disintegrating 4 mg PO Q8H PRN nausea and 08/04/23 tablet vomiting #10 tabs Allergies Allergy/AdvReac Type Severity Reaction Status Date / Time omeprazole AdvReac Intermediate rash/swelling Unverified 08/10/23 21:13 in tongue/dizzy valerian AdvReac Intermediate stomach Unverified 08/10/23 21:13 issues amoxicillin AdvReac Mild tongue Unverified 08/10/23 21:13 itchy General Stated Complaint: Dizzy/Sync RUTH: 3 Review of Systems All systems reviewed & are unremarkable except as noted in HPI and below Exam Narrative Exam Narrative: GENERAL APPEARANCE: Well-nourished, non-toxic, awake and alert, atraumatic, no acute distress. SKIN: Warm, pale, dry, intact, without rashes/lesions/ulcerations. HEAD: Normocephalic, atraumatic, normal hair distribution for gender/age. EYES: Pupils PERRLA, EOMs intact without nystagmus- states EOM cause dizziness, normal conjunctiva, no exudates on lids/lashes. ENT: Nares patent, no circumoral cyanosis, no facial swelling NECK: Supple, trachea midline, painless cervical ROM. LUNGS/CHEST: Lungs CTA bilaterally, non-labored respirations, normal A/P diameter, symmetrical expansion, no chest wall deformity HEART (CV/PV): Regular rate and rhythm without murmur, no peripheral edema, no JVD. ABDOMEN: Soft, non-distended, no guarding, no tenderness. MSK: Normal ROM, no swelling/deformity to bilateral UEs or LEs, moving all extremities without weakness, no cyanosis, spine midline without tenderness, normal curvature. NEURO: Mental Status AAOx4 - alert to person, place, time, events No facial droop, no forehead involvement. HINTS exam negative for central vertigo, no dysmetria Motor: No focal weakness - strength 5/5 in bilateral UEs and LEs, proximal and distal, symmetric. Sensory: sensation intact to light touch globally. Gait normal: patient ambulated without ataxia into ED room. PSYCH: euthymic, cooperative, pleasant, appropriate speech Course Vital Signs Vital signs: Vital Signs Temperature 36.4 C L 08/10/23 21:08 Pulse 88 08/10/23 21:08 Respiratory Rate 18 08/10/23 21:08 Blood Pressure 121/75 08/10/23 21:08 Pulse Oximetry 100 08/10/23 21:08 Temperature 36.4 C L 08/10/23 21:08 Temperature Source Skin 08/10/23 21:08 Pulse 88 08/10/23 21:08 Respiratory Rate 18 08/10/23 21:08 Blood Pressure 121/75 08/10/23 21:08 Blood Pressure Position Sitting 08/10/23 21:08 Pulse Oximetry 100 08/10/23 21:08 Oxygen Delivery Method Room Air 08/10/23 21:08 Oxygen Flow Rate 0 08/10/23 21:08 Pain Level 2 08/10/23 21:08 Comment chronic pain 08/10/23 21:08 Medical Decision Making This dictation utilizes [id number] dictation software and may contain unedited grammatical errors. 32 y/o F presents to ED today with a chief complaint of dizziness, near syncope, near daily this week- reports many deficiencies, anemia, malabsorption, iron deficiency, vitamin D deficiency- patient states this is not vertigo, denies chest pain but endorses pressure sometimes. Patient denies known cardiac proble m, had negative workup on Friday, takes meclizine chronically and was given zofran at prior visit this week. Patients' medical history: [place] syndrome, elevated TSH. Family and social history: states her dad or mom may have had cardiac problems in their 30s but doesn't know what. Pertinent exam findings / vital signs include appears pale, mildly soft BP, benign abdomen, no respiratory distress. Differential / pathologies of concern include anemia, thyroid disorder, anxiety, palpitations, unlikely ACS, vertebral dissection, central vertigo vs peripheral vertigo. Diagnostic studies of: CBC, CMP, Trop I, BNP, EKG, Mg++, TSH w/ reflex, UA, POC Urine, CTA Brain & Neck, Tick & Lyme Panel EKG non-dynamic and without signs of ischemia from prior visit this week. -CTA negative -labs benign (see below) Interventions of IVF ED Course/Assessment/Plan: 32-year-old female seen for intermittent dizziness last Friday seen again states that she has had near syncope multiple times this week. 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 She states that this is not vertigo, states she has [place] syndrom e as well. Her workup is negative, she is not anemic at this time. TSH is elevated as it was last week, she has no major electrolyte disturbances. She has no signs of meningismus, I did send a tick and Lyme panel. HINTS Exam is negative for likely central cause. Patient has a low risk heart score with a negative troponin and BNP with reliable onset, this is reasonable for outpatient follow-up with cardiology for possible heart monitor. Findings not consistent with ACS, vertebral dissection, CVA/TIA, Central Vertigo, Profound Anemia. Disposition of Dizziness of Unknown Cause. Patient verbalized understanding of the plan and return to ED criteria and engaged in shared decision making. Medical Records Medical records reviewed: Yes I reviewed the patient's medical records. Imaging Data Radiologic Study: Attestation: I personally reviewed and interpreted this imaging study as follows: Imaging: CT Scan Radiologist's impression: Exam: CTA Head Without And With Contrast, Arteriography Exam date and time: 08/10/2023 10:09 PM Age: 32 years old Clinical indication: Other: Dizziness, question ataxic, long onset TECHNIQUE: Imaging protocol: Computed tomographic angiography of the head without and with contrast. Exam focused on the arteries. 3D rendering (Not supervised by radiologist): MIP and/or 3D reconstructed images were created by the technologist. Contrast material: 350; Contrast volume: 85 ml; Contrast route: INTRAVENOUS (IV); COMPARISON: No relevant prior studies available. FINDINGS: ANTERIOR CIRCULATION: Right internal carotid artery: Intracranial segment is patent with no significant stenosis or occlusion. No aneurysm. Right middle cerebral artery: No occlusion or significant stenosis. No aneurysm. Right anterior cerebral artery: No occlusion or significant stenosis. No aneurysm. Left internal carotid artery: Intracranial segment is patent with no significant stenosis. No aneurysm. Left middle cerebral artery: No occlusion or significant stenosis. No aneurysm. Left anterior cerebral artery: No occlusion or significant stenosis. No aneurysm. POSTERIOR CIRCULATION: Right vertebral artery: No occlusion or significant stenosis. No aneurysm. Left vertebral artery: No occlusion or significant stenosis. No aneurysm. Basilar artery: No occlusion or significant stenosis. No aneurysm. Right posterior cerebral artery: No occlusion or significant stenosis. No aneurysm. Left posterior cerebral artery: No occlusion or significant stenosis. No aneurysm. HEAD: Brain: No intracranial hemorrhage or extra-axial fluid collection. No evidence of mass effect or midline shift. Angel-white matter differentiation is intact. Cerebral ventricles: Normal. No ventriculomegaly. Bones/joints: Unremarkable. Paranasal sinuses: Visualized sinuses are normal. No fluid levels. Mastoid air cells: Visualized mastoids are normal. No mastoid effusion. Soft tissues: Unremarkable. IMPRESSION: 1. No intracranial arterial occlusion or significant stenosis. 2. No acute findings on non-contrast Head CT images. PROCEDURE INFORMATION: Exam: CTA Neck With Contrast Exam date and time: 08/10/2023 10:09 PM Age: 32 years old Clinical indication: Other: Dizziness, question ataxic, long onset TECHNIQUE: Imaging protocol: Computed tomographic angiography of the neck with contrast. Exam focused on the cervical segments of the vasculature. 3D rendering (Not supervised by radiologist): MIP and/or 3D reconstructed images were created by the technologist. Contrast material: 350; Contrast volume: 85 ml; Contrast route: INTRAVENOUS (IV); COMPARISON: CR XR RIBS LT W PA LAT CHEST 05/03/2022 2:59 AM FINDINGS: Right common carotid artery: No significant stenosis. No dissection or occlusion. Right internal carotid artery: Extracranial segment is patent with no significant stenosis (0% stenosis by NASCET criteria). No dissection or occlusion. Right external carotid artery: No occlusion or significant stenosis. Left common carotid artery: No significant stenosis. No dissection or occlusion. Left internal carotid artery: Extracranial segment is patent with no significant stenosis (0% stenosis by NASCET criteria). No dissection or occlusion. Left external carotid artery: No occlusion or significant stenosis. Right vertebral artery: No significant stenosis. No dissection or occlusion. Left vertebral artery: No significant stenosis. No dissection or occlusion. Soft tissues: Unremarkable. Bones/joints: No acute fracture. IMPRESSION: No occlusion or significant stenosis in the arteries of the neck. REFERENCES: NASCET CRITERIA. The degree of stenosis in the cervical segment of the internal carotid artery is based on NASCET criteria. Normal is no stenosis. Mild is less than 50% stenosis. Moderate is 50-69% stenosis. Severe is 70% to 99% stenosis. Total occlusion is no detectable patent lumen. Dictated and Authenticated by: Danish Schulz MD. Ordering:GIRMA Torrez MD Lab Data Lab results reviewed: Yes I reviewed the patient's lab results. Labs: Laboratory Tests Range/Units 08/10/23 08/10/23 21:53 22:15 WBC (4.4-10.8) 10^3/uL 7.62 RBC (3.93-5.22) 10^6/uL 4.62 Hgb (11.2-15.7) g/dL 13.0 Hct (36.0-46.0) % 39.1 MCV (80-95) fL 85 MCH (27.0-33.0) pg 28.1 MCHC (32.0-36.0) % 33.2 RDW (11.7-14.6) % 13.4 Plt Count (130-400) 10^3/uL 191 MPV (8.0-11.0) fL 11.2 H Immature Gran % 0.3 Neutrophils % 53.1 Lymphocytes % 32.4 Monocytes % 10.1 Eosinophils % 3.3 Basophils % 0.8 Nucleated RBC % (0.0-0.3) % 0.0 Absolute Neutrophils (1.2-6.7) 10^3/uL 4.05 Absolute Lymphocytes (1.2-3.4) 10^3/uL 2.47 Absolute Monocytes (0.1-0.8) 10^3/uL 0.77 Absolute Eosinophils (0.0-0.7) 10^3/uL 0.25 Absolute Basophils (0.0-0.2) 10^3/uL 0.06 ESR (0-20) mm/hr 3 VBG Lactate (0.6-1.4) mmol/L 1.8 H Sodium (136-145) mmol/L 140 Potassium (3.5-5.1) mmol/L 3.9 Chloride (98-107) mmol/L 104 Carbon Dioxide (21.0-32.0) mmol/L 26.4 Anion Gap (3-11) mmol/L 9.6 BUN (7-18) mg/dL 13 Creatinine (0.55-1.02) mg/dL 0.8 Est GFR (CKD-EPI 2020) (mL/min/1.73m2) 99.09 Glucose (74-106) mg/dL 101 Calcium (8.5-10.1) mg/dL 8.6 Magnesium (1.8-2.4) mg/dL 2.0 Total Bilirubin (0.2-1.0) mg/dL 0.3 AST (15-37) U/L 6 L ALT (14-59) U/L 15 Alkaline Phosphatase (46-116) U/L 65 Creatine Kinase (26-192) U/L 49 Troponin I (< or =60) ng/L < 50 C-Reactive Protein (<or=0.5) mg/dL < 0.50 Total Protein (6.4-8.2) g/dL 7.0 Albumin (3.4-5.0) g/dL 3.8 Lipase (16-77) U/L 25 TSH (0.36-3.74) uIU/mL 4.31 H Free T4 (0.76-1.46) ng/dL 0.83 Urine Color (Yellow) Yellow Urine Clarity (Clear) Clear Urine pH (5-8) 8.5 H Ur Specific [place] (1.005-1.025) 1.020 Urine Protein (Neg-Trace) mg/dL Negative Urine Ketones (Negative) mg/dL Negative Urine Blood (Negative) Negative Urine Nitrite (Negative) Negative Urine Bilirubin (Negative) Negative Urine Urobilinogen (Up to 0.2) mg/dL 0.2 Ur Leukocyte Esterase (Negative) Trace H Urine RBC (0-2) HPF Negative Urine WBC (0-5) HPF 0-2 Ur Epithelial Cells (Negative) HPF Few Urine Crystals (Negative) HPF Negative Urine Bacteria (Negative) HPF Few Urine Casts (Negative) LPF Negative Urine Mucus (Negative) Negative Ur Culture Indicated? No Urine Glucose (Negative) mg/dL Negative Quality:SDOH Health Related Social Needs: Health related social needs transpo insecurity Health related social needs details Patient reports th at she and her do not drive, that their neighbor is the sole source of transportation. PFSH All Active Problems (Updated 08/11/23 @ 00:00 by RUTH ANN Deleon) Dizziness of unknown cause (Acute) Elevated TSH (Acute) Near syncope (Acute) Social History Smoking/Tobacco Use Status: Current-Occasional Tobacco Type: cigars Smoking risk assessment performed?: Yes Alcohol Intake: current Alcohol Intake frequency: holidays/special occasions only Drug use: Never Substance use type: does not use Housing: house Do you feel safe at home: Yes Do you feel safe in your relationship?: Yes Discharge Plan Disposition Patient Disposition: Home Condition: Stable Discharge Details Chief Complaint: Dizzy/Sync Clinical Impression: Dizziness of unknown cause Primary Care Provider: Unknown,Unknown ED Provider: Shan Barclay [place] Meds and New Rx's Prescriptions: No Action ondansetron 4 mg tablet,disintegrating 4 mg PO Q8H PRN (Reason: nausea and vomiting) Qty: 10 0RF Rx Instructions: Take 1 tablet by mouth up to 3 times daily as needed for nausea and vomiting. lidocaine [Lidoderm] 5 % adhesive patch,medicated 1 patch Topical Q24H Qty: 15 0RF Discharge Instructions Instructions: Heart Palpitations (ED), Near Syncope (ED), Dizziness (ED) Additional Instructions: You were seen in the emergency department for your dizzy spells with palpitations, you had no evidence of anemia on blood work, you do have an elevat ed thyroid-stimulating hormone which you are advised about at your last visit, your cardiac labs show no acute abnormality and your EKG is in normal rhythm consistent with your prior visit this week, the CT of your head and neck showed no vascular anomaly causing these dizzy spells. Due to your age and low risk profile is recommended that you follow-up as an outpatient, I have forwarded your chart to the cardiology office for a heart monitor to wear and evaluate for any actual arrhythmias during your procedure palpitations. Please follow-up with your primary care provider or return to ED for any acute worsening Stand Alone Forms: Work Release Referrals: [facility] [Provider Group]
--- NOTE | 2023-08-10 21:30 | DI.CT_ITS ---
Exam(s) CT BRAIN NECK CTA EXAM: CT BRAIN NECK CTA CLINICAL HISTORY: dizziness, question ataxic, long onset. TECHNIQUE: Imaging Protocol: Axial CT angiography was performed with multi-slice acquisition and mu lti-planar and/or 3D reconstructions. CONTRAST MATERIAL: Intravenous: Omnipaque 350 contrast volume:85 mL COMPARISON: No exams were available for comparison FINDINGS: CT Head W/O and W: Ventricles and Extra axial spaces: Normal in size and morphology for the patient's age. Hemorrhage: None. Cerebral parenchyma: Normal. Midline shift: None. Brainstem/Cerebellum: Normal. Calvarium: Normal. Visualized Paranasal sinuses/Mastoids: Clear. Soft Tissues: Unremarkable. Enhancement: Unremarkable. CTA Neck W: Common Carotid: Right: No dissection, occlusion or significant stenosis. Left: No dissection, occlusion or significant stenosis. External Carotid: Right: No occlusion or significant stenosis. Left: No occlusion or significant stenosis. Internal Carotid: Right: No dissection, occlusion or significant stenosis. Left: No dissection, occlusion or significant stenosis. Vertebral Artery: Right: No dissection, occlusion or significant stenosis. Left: No dissection, occlusion or significant stenosis. There is a dominant left vertebral artery. Lung Apices: Normal. Bones: Within normal limits for the patient's age. Soft Tissues: Normal. Thyroid gland: Unremarkable. CTA Brain W: Internal Carotid Arteries: Normal. Anterior Cerebral Arteries: Right: No aneurysm, occlusion or significant stenosis. Left: No aneurysm, occlusion or significant stenosis. Middle Cerebral Arteries: Right: No aneurysm, occlusion or significant stenosis. Left: No aneurysm, occlusion or significant stenosis. Posterior Cerebral Arteries: Right: No aneurysm, occlusion or significant stenosis. Left: No aneurysm, occlusion or significant stenosis. Vertebral Arteries: Right: No aneurysm, occlusion or significant stenosis. Left: No aneurysm, occlusion or significant stenosis. Basilar Artery: No aneurysm, occlusion or significant stenosis. IMPRESSION: 1. No large vessel occlusion or significant stenosis on the CT angiography of the head. 2. No acute intracranial process. 3. No occlusion or significant stenosis on the CT angiography of the neck. RADIATION DOSE DELIVERED: 1,925.75mGy.cm Total DLP DATA REPOSITORY: All CT scans at this facility are submitted to the National Radiology Data Registry (NRDR) Dose Index Registry (DIR) with the [employer] (ACR). RADIATION OPTIMIZATION: All CT scans at this facility use at least one of these dose optimization te chniques: automated exposure control; mA and/or kV adjustment per patient size (includes targeted exa ms where dose is matched to clinical indication); or iterative reconstruction.
[2023-08-10 21:33] VITALS: RESP 16
[2023-08-10] MEDS: Lactated Ringers 1,000 ML 1000 ML IV (21:50)
[2023-08-10 22:03] LABS: Lactate 1.8 mmol/L (0.6-1.4)
[2023-08-10 22:04] LABS: Abs Immature Grans 0.02 10^3/uL (0.0-0.06); Absolute Basophil Count 0.06 10^3/uL (0.0-0.2); Absolute Eosinophil Count 0.25 10^3/uL (0.0-0.7); Absolute Lymphocyte Count 2.47 10^3/uL (1.2-3.4); Absolute Monocyte Count 0.77 10^3/uL (0.1-0.8); Absolute Neutrophil Count 4.05 10^3/uL (1.2-6.7); Basophils % 0.8; Eosinophils % 3.3; HCT 39.1 % (36.0-46.0); Immature Grans % 0.3; Lymphocytes % 32.4; MCH 28.1 pg (27.0-33.0); MCHC 33.2 % (32.0-36.0); MCV 85 fL (80-95); MPV 11.2 fL (8.0-11.0); Monocytes % 10.1; Neutrophils % 53.1; Platelet Count 191 10^3/uL (130-400); RBC 4.62 10^6/uL (3.93-5.22); RDW 13.4 % (11.7-14.6); WBC 7.62 10^3/uL (4.4-10.8)
[2023-08-10 22:06] LABS: ESR 3 mm/hr (0-20)
[2023-08-10] MEDS: Omnipaque 350 MG/ML 100 ML BTL IJ (22:08)
[2023-08-10] MEDS: Normal Saline Flush 10 ML SYR IVP (22:14)
[2023-08-10] MEDS: Normal Saline - Diluent 50 ML VIAL IJ (22:14)
[2023-08-10 22:24] LABS: Bilirubin Negative (Negative); Blood Negative (Negative); Clarity Clear (Clear); Glucose Negative (Negative); Ketones Negative (Negative); Leukocyte Esterase Trace (Negative); Nitrite Negative (Negative); Urobilinogen 0.2 mg/dL (Up to 0.2); pH 8.5 (5-8)
[2023-08-10 22:29] LABS: Bacteria Few HPF (Negative); C & S Indicated? No; Casts Negative LPF (Negative); Crystals Negative HPF (Negative); Epithelial Cells Few HPF (Negative); Mucus Negative (Negative); RBC Negative HPF (0-2); WBC 0-2 HPF (0-5)
[2023-08-10 22:30] LABS: ALT 15 U/L (14-59); AST 6 U/L (15-37); Albumin 3.8 g/dL (3.4-5.0); Alkaline Phosphatase 65 U/L (46-116); Anion Gap 9.6 mmol/L (3-11); BUN 13 mg/dL (7-18); Bilirubin, Total 0.3 mg/dL (0.2-1.0); C-Reactive Protein < 0.50 mg/dL (<or=0.5); CO2 26.4 mmol/L (21.0-32.0); CREATININE 0.8 mg/dL (0.55-1.02); Calcium 8.6 mg/dL (8.5-10.1); Chloride 104 mmol/L (98-107); Creatine Kinase 49 U/L (26-192); Estimated GFR 99.09 (mL/min/1.73m2); Glucose 101 mg/dL (74-106); Lipase 25 U/L (16-77); Potassium 3.9 mmol/L (3.5-5.1); Sodium 140 mmol/L (136-145); TSH (W/Ref FT4) 4.31 uIU/mL (0.36-3.74); Troponin I < 50 ng/L (< or =60)
[2023-08-10 22:46] LABS: FREE T4 0.83 ng/dL (0.76-1.46)
--- NOTE | 2023-08-10 23:52 | DI.VRAD_ITS ---
PROCEDURE INFORMATION: Exam: CTA Head Without And With Contrast, Arteriography Exam date and time: 08/10/2023 10:09 PM Age: 32 years old Clinical indication: Other: Dizziness, question ataxic, long onset TECHNIQUE: Imaging protocol: Computed tomographic angiography of the head without and with contrast. Exam focused on the arteries. 3D rendering (Not supervised by radiologist): MIP and/or 3D reconstructed images were created by the technologist. Contrast material: 350; Contrast volume: 85 ml; Contrast route: INTRAVENOUS (IV); COMPARISON: No relevant prior studies available. FINDINGS: ANTERIOR CIRCULATION: Right internal carotid artery: Intracranial segment is patent with no significant stenosis or occlusion. No aneurysm. Right middle cerebral artery: No occlusion or significant stenosis. No aneurysm. Right anterior cerebral artery: No occlusion or significant stenosis. No aneurysm. Left internal carotid artery: Intracranial segment is patent with no significant stenosis. No aneurysm. Left middle cerebral artery: No occlusion or significant stenosis. No aneurysm. Left anterior cerebral artery: No occlusion or significant stenosis. No aneurysm. POSTERIOR CIRCULATION: Right vertebral artery: No occlusion or significant stenosis. No aneurysm. Left vertebral artery: No occlusion or significant stenosis. No aneurysm. Basilar artery: No occlusion or significant stenosis. No aneurysm. Right posterior cerebral artery: No occlusion or significant stenosis. No aneurysm. Left posterior cerebral artery: No occlusion or significant stenosis. No aneurysm. HEAD: Brain: No intracranial hemorrhage or extra-axial fluid collection. No evidence of mass effect or midline shift. Angel-white matter differentiation is intact. Cerebral ventricles: Normal. No ventriculomegaly. Bones/joints: Unremarkable. Paranasal sinuses: Visualized sinuses are normal. No fluid levels. Mastoid air cells: Visualized mastoids are normal. No mastoid effusion. Soft tissues: Unremarkable. IMPRESSION: 1. No intracranial arterial occlusion or significant stenosis. 2. No acute findings on non-contrast Head CT images. PROCEDURE INFORMATION: Exam: CTA Neck With Contrast Exam date and time: 08/10/2023 10:09 PM Age: 32 years old Clinical indication: Other: Dizziness, question ataxic, long onset TECHNIQUE: Imaging protocol: Computed tomographic angiography of the neck with contrast. Exam focused on the cervical segments of the vasculature. 3D rendering (Not supervised by radiologist): MIP and/or 3D reconstructed images were created by the technologist. Contrast material: 350; Contrast volume: 85 ml; Contrast route: INTRAVENOUS (IV); COMPARISON: CR XR RIBS LT W PA LAT CHEST 05/03/2022 2:59 AM FINDINGS: Right common carotid artery: No significant stenosis. No dissection or occlusion. Right internal carotid artery: Extracranial segment is patent with no significant stenosis (0% stenosis by NASCET criteria). No dissection or occlusion. Right external carotid artery: No occlusion or significant stenosis. Left common carotid artery: No significant stenosis. No dissection or occlusion. Left internal carotid artery: Extracranial segment is patent with no significant stenosis (0% stenosis by NASCET criteria). No dissection or occlusion. Left external carotid artery: No occlusion or significant stenosis. Right vertebral artery: No significant stenosis. No dissection or occlusion. Left vertebral artery: No significant stenosis. No dissection or occlusion. Soft tissues: Unremarkable. Bones/joints: No acute fracture. IMPRESSION: No occlusion or significant stenosis in the arteries of the neck. REFERENCES: NASCET CRITERIA. The degree of stenosis in the cervical segment of the internal carotid artery is based on NASCET criteria. Normal is no stenosis. Mild is less than 50% stenosis. Moderate is 50-69% stenosis. Severe is 70% to 99% stenosis. Total occlusion is no detectable patent lumen. Dictated and Authenticated by: Danish Schulz MD. Ordering:GIRMA Torrez MD
[2023-08-11 00:05] VITALS: BP 105/58; PULSE 72; RESP 16; TEMP 36.6; O2SAT 100
--- NOTE | 2023-08-11 07:15 | NUR.NOTE ---
Accessed pt chart to send referral to [facility] Cardiology for dizziness, palpitations, diagnostic cardiac sonographer, this week. Nursing Note:
[2023-08-12 10:59] LABS: Lyme Ab w Rflx to Lyme Confirm Negative (Negative)
[2023-08-14 14:02] LABS: Anaplasma phagocytophilum Negative (Negative); B. miyamotoi PCR Negative (Negative); Babesia divergens/MO-1 Negative (Negative); Babesia duncani Negative (Negative); Babesia microti Negative (Negative); Ehrlichia chaffeensis Negative (Negative); Ehrlichia ewingii/canis Negative (Negative); Ehrlichia muris eauclairensis Negative (Negative)
== END 2023-08-11 00:16 | disposition home or self-care (01) ==
PROVIDERS: Emergency Provider Physician Assistant
DX: R55 Syncope and collapse (principal); R06.02 Shortness of breath; R00.2 Palpitations; F17.290 Nicotine dependence, other tobacco product, uncomplicated
CPT/HCPCS: 70496; 70498; 80053; 81025; 82550; 83690; 85652; 87798; 93005; 96360; 99285; 81003; 81015; 83605; 83735; 84439; 84443; 84484; 85025; 86140; 86618; 93010; 99284; J3490

== ENCOUNTER 2023-08-19 15:16 | Outpatient (REF) | payer MEDICAID, SELFPAY ==
[2023-08-19 18:48] LABS: HCT 38.4 % (36.0-46.0); HGB 12.4 g/dL (11.2-15.7); MCH 27.4 pg (27.0-33.0); MCHC 32.3 % (32.0-36.0); MCV 85 fL (80-95); MPV 11.8 fL (8.0-11.0); Platelet Count 185 10^3/uL (130-400); RBC 4.53 10^6/uL (3.93-5.22); RDW 13.5 % (11.7-14.6); RDW-SD 41.9 fL
[2023-08-19 19:17] LABS: Iron 29 ug/dL (50-170); Total Iron Binding Capacity 348 ug/dL (250-450); Transferrin Sat 8 % (15-50)
[2023-08-19 19:30] LABS: Vitamin D 25 Total 9.8 ng/mL (30-100)
[2023-08-19 19:35] LABS: ALT 15 U/L (14-59); AST 13 U/L (15-37); Albumin 3.6 g/dL (3.4-5.0); Alkaline Phosphatase 50 U/L (46-116); Anion Gap 8.6 mmol/L (3-11); BUN 11 mg/dL (7-18); Bilirubin, Total 0.2 mg/dL (0.2-1.0); CO2 25.4 mmol/L (21.0-32.0); CREATININE 0.8 mg/dL (0.55-1.02); Calcium 8.7 mg/dL (8.5-10.1); Chloride 108 mmol/L (98-107); Estimated GFR 99.09 (mL/min/1.73m2); FREE T4 0.92 ng/dL (0.76-1.46); Glucose 92 mg/dL (74-106); Potassium 3.8 mmol/L (3.5-5.1); Sodium 142 mmol/L (136-145); TSH 7.68 uIU/Ml (0.36-3.74); Total Protein 6.9 g/dL (6.4-8.2)
[2023-08-19 20:14] LABS: Ferritin 32 ng/mL (8-252); Folate 14.7 ng/mL (8.6-20.0); Vitamin B12 231 pg/mL (193-986)
[2023-08-20 17:46] LABS: T3,Free 3.9 pg/mL (2.8-5.3)
[2023-08-20 18:46] LABS: Thyroglobulin Antibody 22 U/mL (<=60); Thyroperoxidase Antibody <28 U/mL (<=60)
[2023-08-21 12:30] LABS: ANA Interpretation Negative (Negative)
== END 2023-08-19 15:17 | disposition home or self-care (01) ==
LOC: NCHCN 15:16
PROVIDERS: Referring Provider Nurse Practitioner Family; Visit Provider Nurse Practitioner Family
DX: R55 Syncope and collapse (principal)
CPT/HCPCS: 80053; 82306; 85027; 82607; 82728; 82746; 83540; 83550; 84439; 84443; 84481; 86038; 86376; 86800

== ENCOUNTER 2023-09-04 11:21 | Outpatient (RCR) | payer MEDICAID, SELFPAY ==
--- NOTE | 2023-09-04 11:45 | HOLTER_ITS ---
APPROVED REPORT Conclusion This is a 48-hour Holter monitor Rhythm throughout was sinus with an average heart rate of 79. Minimum was 58, maximum 121 2 isolated premature ventricular contractions were seen There was 1 atrial premature beat There was no atrial fibrillation, no high-grade AV block, no pauses greater than 3 seconds No symptoms were reported
== END 2023-09-21 23:59 | disposition home or self-care (01) ==
LOC: CARDOPNVT 11:21
PROVIDERS: PCP Nurse Practitioner Family; Visit Provider Internal Medicine Cardiovascular Disease
DX: R55 Syncope and collapse (principal)
CPT/HCPCS: 93225; 93226

== ENCOUNTER 2024-04-14 17:27 | Emergency (ER) | payer MEDICAID, SELFPAY ==
[2024-04-14 17:29] VITALS: BP 134/90; PULSE 76; RESP 16; TEMP 36.5; O2SAT 98
--- NOTE | 2024-04-14 17:50 | W.ED.GENAD ---
Discharge Plan Disposition Patient Disposition: Home Condition: Stable Discharge Details Clinical Impression: Light-headedness, Heavy menstrual bleeding Primary Care Provider: Unknown,Unknown ED Provider: Latonia Crabtree Home Meds and New Rx's Prescriptions: No Action lidocaine [Lidoderm] 5 % adhesive patch,medicated 1 patch Topical Q24H Qty: 15 0RF Discharge Instructions Instructions: Dizziness, Adult ED, Heavy Periods ED Additional Instructions: Please take the nausea medication 20 to 30 minutes before eating or drinking anything. Increase oral fluid rehydration. Practice pelvic rest while on your menstrual period, no heavy lifting or 50 pounds, eat well and allow time for rest. Labs are largely within normal limits. No evidence of urinary tract infection or anemia at this time. Follow up with primary care provider in 3-5 days. Return to ED sooner if any worsening or concerns. Please take Tylenol or Ibuprofen with food every 4-6 hours as needed for pain and swelling. Referrals: [facility] [Provider Group] - 5 days Discharge Data Discharge Date/Time-TO BE ENTERED AT DEPARTURE: 04/14/24 19:38 HPI General Mode of arrival: ambulatory. Date/Time Provider Initiated Documentation: 04/14/24 17:37. Limitations to Documentation: no limitations. Information obtained by: patient, RN notes reviewed and old records reviewed. HPI Narrative: 33-year-old female presents to the ER with a chief complaint of dizziness lightheadedness. Patient reports she began her menstrual period today. She recently just got over a URI. She does have some mild abdominal cramping and nausea which she reports is normal for this time of the month. She does have a history of heavy periods, PCOS possible endometriosis. Also reports some back pain. Related Data Home Medications ?Medication ?Instructions ?Recorded ?Confirmed lidocaine 5 % topical patch 1 patch topical Q24H #15 ea 05/03/22 04/14/24 (Lidoderm) Previous Rx's ?Medication ?Instructions ?Recorded lidocaine 5 % topical patch 1 patch topical Q24H #15 ea 05/03/22 (Lidoderm) Allergies Allergy/AdvReac Type Severity Reaction Status Date / Time omeprazole AdvReac Intermediate rash/swelling Unverified 04/14/24 17:35 in tongue/dizzy valerian AdvReac Intermediate stomach Unverified 04/14/24 17:35 issues amoxicillin AdvReac Mild tongue Unverified 04/14/24 17:35 itchy General Stated Complaint: Dizzy/Sync RUTH: 3 Review of Systems All systems reviewed & are unremarkable except as noted in HPI and below Constitutional Constitutional: Reports as per HPI ENT Ears, Nose, Mouth, and Throat: Reports dizziness Cardiovascular Cardiovascular: Reports syncope and Reports lightheadedness Neurologic Neurologic: Reports dizziness and Reports syncope Exam Narrative Exam Narrative: Constitutional: Alert and oriented x3. Appears stated age. Normal body habitus. Head: Normocephalic, no trauma. Eyes: Pupils PERRL, Red reflex noted, EOM's intact. Eyelids symmetrical without lesions, discharge, or swelling. ENT: Bilateral TM's WNL, External ear normal to inspection, no mastoid TTP, swelling, or erythema, Nasal turbinates WNL, no nasal discharge. Normal dentition, Posterior pharynx WNL, no exudate. Chest: RRR, Normal S1, S2, distal pulses intact. Resp: Lungs clear to auscultation bilaterally, no wheezes, rales, or rhonchi. Abdomen: Soft, non-distended, Normoactive bowel sounds all 4 quads. Musculoskeletal: Normal gait, Moves all 4 extremities without difficulty. Skin: No suspicious rashes or lesions. Capillary refill less than 2 sec. Neurologic: Cranial nerves II-XII intact. Alert and oriented x 3. Motor: No deficits noted. Sensory: Intact bilaterally all 4 extremities. Hematologic/Lymphatic: No ecchymosis, no lymphadenopathy. Course Vital Signs Vital signs: Vital Signs Temperature 36.5 C 04/14/24 17:29 Pulse 76 04/14/24 17:29 Respiratory Rate 16 04/14/24 17:29 Blood Pressure 134/90 04/14/24 17:29 Pulse Oximetry 98 04/14/24 17:29 Temperature 36.5 C 04/14/24 17:29 Temperature Source Temporal Artery Scan 04/14/24 17:29 Pulse 76 04/14/24 17:29 Respiratory Rate 16 04/14/24 17:29 Blood Pressure 134/90 04/14/24 17:29 Blood Pressure Position Sitting 04/14/24 17:29 Pulse Oximetry 98 04/14/24 17:29 Oxygen Delivery Method Room Air 04/14/24 17:29 Oxygen Flow Rate 0 04/14/24 17:29 Pain Level 6 04/14/24 17:29 Medical Decision Making 33-year-old female presents to the ER with a chief complaint of dizziness lightheadedness. Patient reports she began her menstrual period today. She recently just got over a URI. She does have some mild abdominal cramping and nausea which she reports is normal for this time of the month. She does have a history of heavy periods, PCOS possible endometriosis. Also reports some back pain. CBC shows no leukocytosis H&H within normal limits. BMP largely within normal limits. Urinalysis shows moderate blood however patient is on her menstrual period. No evidence of UTI no leukocytes no nitrates. Will send home with p.o. Zofran and encourage oral fluid rehydration. Patient discharged ambulatory without assistance without difficulty. This text was generated using [employer] system, please disregard any oddities of phrase or misspellings. Lab Data Lab results reviewed: Yes I reviewed the patient's lab results. Labs: Laboratory Tests Range/Units 04/14/24 04/14/24 18:13 18:15 WBC (4.4-10.8) 10^3/uL 7.29 RBC (3.93-5.22) 10^6/uL 4.61 Hgb (11.2-15.7) g/dL 13.1 Hct (36.0-46.0) % 40.7 MCV (80-95) fL 88 MCH (27.0-33.0) pg 28.4 MCHC (32.0-36.0) % 32.2 RDW (11.7-14.6) % 13.3 Plt Count (130-400) 10^3/uL 202 MPV (8.0-11.0) fL 10.8 Immature Gran % % 0.1 Neutrophils % % 60.7 Lymphocytes % % 28.1 Monocytes % % 7.0 Eosinophils % % 3.6 Basophils % % 0.5 Nucleated RBC % (0.0-0.3) % 0.0 Absolute Neutrophils (1.2-6.7) 10^3/uL 4.42 Absolute Lymphocytes (1.2-3.4) 10^3/uL 2.05 Absolute Monocytes (0.1-0.8) 10^3/uL 0.51 Absolute Eosinophils (0.0-0.7) 10^3/uL 0.26 Absolute Basophils (0.0-0.2) 10^3/uL 0.04 Sodium (136-145) mmol/L 143 Potassium (3.5-5.1) mmol/L 3.7 Chloride (98-107) mmol/L 108 H Carbon Dioxide (21.0-32.0) mmol/L 27.0 Anion Gap (3-11) mmol/L 8.0 BUN (7-18) mg/dL 13 Creatinine (0.55-1.02) mg/dL 0.9 Est GFR (CKD-EPI 2020) (mL/min/1.73m2) 85.50 Glucose (74-106) mg/dL 88 Calcium (8.5-10.1) mg/dL 8.7 Magnesium (1.8-2.4) mg/dL 2.0 Total Bilirubin (0.2-1.0) mg/dL 0.30 AST (15-37) U/L 9 L ALT (14-59) U/L 15 Alkaline Phosphatase (46-116) U/L 70 Total Protein (6.4-8.2) g/dL 7.2 Albumin (3.4-5.0) g/dL 3.7 Urine Color (Yellow) Yellow Urine Clarity (Clear) Clear Urine pH (5-8) 5.5 Ur Specific [place] (1.005-1.025) >= 1.030 H Urine Protein (Neg-Trace) mg/dL Negative Urine Ketones (Negative) mg/dL Negative Urine Blood (Negative) Moderate H Urine Nitrite (Negative) Negative Urine Bilirubin (Negative) Negative Urine Urobilinogen (Up to 0.2) mg/dL 0.2 Ur Leukocyte Esterase (Negative) Negative Urine RBC (0-2) HPF 20-50 H Urine WBC (0-5) HPF 0-2 Ur Epithelial Cells (Negative) HPF Rare Urine Crystals (Negative) HPF Negative Urine Bacteria (Negative) HPF Rare Urine Casts (Negative) LPF Negative Urine Mucus (Negative) Negative Ur Culture Indicated? No Urine Glucose (Negative) mg/dL Negative Quality:SDOH Health Related Social Needs: Health related social needs transportation insecurity(Z59.82) Health related social needs details Patient reports that she and her do not drive, that their neighbor is the sole source of transportation. PFSH All Active Problems (Updated 04/14/24 @ 19:11 by Latonia Crabtree NP) Heavy menstrual bleeding (Acute) Light-headedness (Acute) Social History Smoking/Tobacco Use Status: Current-Occasional Tobacco Type: cigars Smoking risk assessment performed?: Yes Alcohol Intake: current Alcohol Intake frequency: holidays/special occasions only Drug use: Never Substance use type: does not use Housing: house Do you feel safe at home: Yes Do you feel safe in your relationship?: Yes
[2024-04-14 18:16] LABS: Abs Immature Grans 0.01 10^3/uL (0.0-0.06); Absolute Basophil Count 0.04 10^3/uL (0.0-0.2); Absolute Eosinophil Count 0.26 10^3/uL (0.0-0.7); Absolute Lymphocyte Count 2.05 10^3/uL (1.2-3.4); Absolute Monocyte Count 0.51 10^3/uL (0.1-0.8); Absolute Neutrophil Count 4.42 10^3/uL (1.2-6.7); Basophils % 0.5 %; Eosinophils % 3.6 %; HCT 40.7 % (36.0-46.0); HGB 13.1 g/dL (11.2-15.7); Immature Grans % 0.1 %; Lymphocytes % 28.1 %; MCH 28.4 pg (27.0-33.0); MCHC 32.2 % (32.0-36.0); MCV 88 fL (80-95); MPV 10.8 fL (8.0-11.0); Neutrophils % 60.7 %; Platelet Count 202 10^3/uL (130-400); RBC 4.61 10^6/uL (3.93-5.22); RDW 13.3 % (11.7-14.6); RDW-SD 43.4 fL; WBC 7.29 10^3/uL (4.4-10.8)
[2024-04-14] MEDS: Ondansetron O.D.T. 4 MG TABEF PO (18:25)
[2024-04-14 18:37] LABS: ALT 15 U/L (14-59); AST 9 U/L (15-37); Albumin 3.7 g/dL (3.4-5.0); Alkaline Phosphatase 70 U/L (46-116); BUN 13 mg/dL (7-18); CREATININE 0.9 mg/dL (0.55-1.02); Calcium 8.7 mg/dL (8.5-10.1); Chloride 108 mmol/L (98-107); Glucose 88 mg/dL (74-106); Potassium 3.7 mmol/L (3.5-5.1); Sodium 143 mmol/L (136-145); Total Protein 7.2 g/dL (6.4-8.2)
[2024-04-14 18:41] LABS: Bilirubin Negative (Negative); Blood Moderate (Negative); Clarity Clear (Clear); Glucose Negative (Negative); Ketones Negative (Negative); Leukocyte Esterase Negative (Negative); Nitrite Negative (Negative); Specific Gravity >= 1.030 (1.005-1.025); Urobilinogen 0.2 mg/dL (Up to 0.2); pH 5.5 (5-8)
[2024-04-14 18:49] LABS: Bacteria Rare HPF (Negative); C & S Indicated? No; Casts Negative LPF (Negative); Crystals Negative HPF (Negative); Epithelial Cells Rare HPF (Negative); Mucus Negative (Negative); RBC 20-50 HPF (0-2); WBC 0-2 HPF (0-5)
[2024-04-14] MEDS: Ondansetron O.D.T. 4 MG TABEF, 3 TABS/BTL PO (19:19)
[2024-04-14 19:20] VITALS: BP 106/62; PULSE 69; RESP 16; O2SAT 99
== END 2024-04-14 19:38 | disposition home or self-care (01) ==
LOC: ER 19:13
PROVIDERS: Emergency Provider Registered Nurse Emergency
DX: R42 Dizziness and giddiness (principal); N92.0 Excessive and frequent menstruation with regular cycle; F17.290 Nicotine dependence, other tobacco product, uncomplicated
CPT/HCPCS: 80053; 81025; 99283; 81003; 81015; 83735; 85025

== ENCOUNTER 2024-05-03 21:20 | Emergency (ER) | payer MEDICAID, SELFPAY ==
[2024-05-03 21:25] VITALS: BP 130/90; PULSE 108; RESP 20; TEMP 37.7
[2024-05-03 21:33] VITALS: BP 130/90; PULSE 108; RESP 20; TEMP 37.7
--- NOTE | 2024-05-03 22:15 | RT.EKG_ITS ---
APPROVED REPORT Exam: Resting ECG Reason for Exam: chest pressure Patient Location: E HR:81 bpm ECG Measurements Heart Rate 81 AXIS MA 148 P 45 QRSd 79 QRS 44 QT 363 T 53 QTc 422 Conclusion Sinus rhythm...normal P axis, V-rate 60- 99 Probable left atrial enlargement...P >50mS, <-0.10mV V1 I have reviewed and interpreted ECG and agree with software generated interpretation. There are no significant changes compared to prior EKG performed on 08/04/2023 at 13:16.
--- NOTE | 2024-05-03 22:15 | DI.RAD_ITS ---
Exam(s) XR CHEST 2V PA LATERAL EXAM: XR CHEST 2V PA LATERAL CLINICAL HISTORY: cough, sob TECHNIQUE: 2D digital imaging was performed. Two views. COMPARISON: CR,XR XR RIBS LT W PA LAT CHEST from 05/03/2022 FINDINGS: HEART: Normal size. Aorta: Not dilated. PULMONARY VASCULATURE: Normal. MEDIASTINUM: Unremarkable. LUNGS: Hazy infiltrate in the superior segment of the right lower lobe. The left lung appears clear. PLEURAL SPACE: No pleural effusion or pneumothorax. BONE:Unremarkable for age. SOFT TISSUES: Unremarkable. IMPRESSION: Right lower lobe pneumonia. DATA REPOSITORY: RADIATION DOSE DELIVERED:
[2024-05-03 22:25] LABS: COVID-19 PCR Negative (Negative); Influenza A PCR Negative (Negative); Influenza B PCR Negative (Negative); RSV PCR Negative (Negative)
--- NOTE | 2024-05-03 22:25 | ED.GENADUL_ITS ---
Discharge Plan Disposition Patient Disposition: Home Discharge Details Clinical Impression: Pneumonia, UTI (urinary tract infection) Primary Care Provider: Unknown,Unknown ED Provider: Andreia Soto Home Meds and New Rx's Prescriptions: New cefpodoxime 200 mg tablet 200 mg PO BID Qty: 10 0RF Rx Instructions: must administer with a meal/food Discharge Instructions Additional Instructions: Please call your primary care provider to schedule a follow up appointment for a recheck within the next week or two. Stay well hydrated, drinking plenty of fluids. You are being treated with two antibiotics. Please take the full course as prescribed. Return to emergency care if you develop difficulty breathing, inability to hold down fluids or medications, inability to urinate, severe abdominal pain, or if you are very worried and need to be rechecked again immediately. HPI General Date/Time Provider Initiated Documentation: 05/03/24 21:21 . HPI Narrative: Annabel is a 33 year old female who presents to the emergency department today for evaluation of low grade fever, body aches, sore throat, headache, sore throat, shortness of breath with cough, chest pressure, and nausea x 2 weeks. Denies congestion, vomiting, abdominal pain, change in bowel/bladder function, calf redness/swelling, pedal edema. No recent surgeries, hormone use, or history of blood clots. Past medical history is significant for childhood leukemia and unknown immunocompromise. Non smoker. Physical exam remarkable for tight lung sounds with I+E wheezes and frequent cough. MMM. Normal oropharyunx. +cervical LAD. Normal heart sounds. Abdomen is soft, nondistended, nontender to palpation D/dx includes but is not limited to: PNA, viral illness such as COVID-19 or flu, cardiac arrhythmia, asthma exacerbation, electrolyte imbalance, dehydration I independently interpreted the following tests: CBC, BMP, HCG all reassuring. UA notable for 10-20 WBCs, concerning for UTI. EKG reassuring, NSR with rate 81. No changes c/w acute ischemia. COVID/flu/RSV negative. While in the emergency department, Annabel received a duoneb for wheezing; azithromycin and cefpodoxime given for PNA. History and presentation c/w R sided PNA and UTI. Will treat with zpack and cefpodoxime.Reviewed discharge instructions with patient, including symptomatic management and red flags indicating need for return to emergency care. Advised close f/u with PCP Related Data Home Medications ?Medication ?Instructions ?Recorded ?Confirmed cefpodoxime 200 mg tablet 200 mg PO BID #10 tabs 05/03/24 Previous Rx's ?Medication ?Instructions ?Recorded cefpodoxime 200 mg tablet 200 mg PO BID #10 tabs 05/03/24 Allergies Allergy/AdvReac Type Severity Reaction Status Date / Time omeprazole AdvReac Intermediate rash/swelling Unverified 05/03/24 21:37 in tongue/dizzy valerian AdvReac Intermediate stomach Unverified 05/03/24 21:37 issues amoxicillin AdvReac Mild tongue Unverified 05/03/24 21:37 itchy General Stated Complaint: RespSymp RUTH: 3 Review of Systems Narrative: see HPI Exam Const General: cooperative, no acute distress and well developed Nutritional Appearance: average body habitus Orientation: alert and oriented x3 HENMT Ears: hearing grossly normal bilaterally General nose exam: external nose normal Face and sinus: normal facial exam Mouth: oral mucosae normal, lip normal and tongue normal Throat: posterior oropharynx normal Neck Neck: lymphadenopathy Resp Effort & Inspection: normal respiratory effort and able to speak in complete sentences Auscultation: wheezes Cardio Rate: regular rate Rhythm: regular rhythm GI Inspection: normal to inspection Palpation: soft and nontender Course Vital Signs Vital signs: Vital Signs Temperature 37.7 C H 05/03/24 21:25 Pulse 108 H 05/03/24 21:25 Respiratory Rate 20 05/03/24 21:25 Blood Pressure 130/90 05/03/24 21:25 Temperature 37.7 C H 05/03/24 21:33 Temperature Source Oral 05/03/24 21:33 Pulse 108 H 05/03/24 21:33 Respiratory Rate 20 05/03/24 21:33 Respiratory Effort Short of Breath 05/03/24 21:33 Respiratory Depth Shallow 05/03/24 21:33 Blood Pressure 130/90 05/03/24 21:33 Blood Pressure Position Sitting 05/03/24 21:33 Pain Level 8 05/03/24 21:33 Medical Decision Making Quality:SDOH Health Related Social Needs: Health related social needs transportation insecurity( Z59.82) Health related social needs details Patient reports th at she and her do not drive, that their neighbor is the sole source of transportation. PFSH All Active Problems (Updated 05/03/24 @ 23:16 by Andreia Fontaine) UTI (urinary tract infection) (Acute) Pneumonia (Acute) Heavy menstrual bleeding (Acute) Light-headedness (Acute) Social History Smoking/Tobacco Use Status: Current-Occasional Tobacco Type: cigars Smoking risk assessment performed?: Yes Alcohol Intake: current Alcohol Intake frequency: holidays/special occasions only Drug use: Never Substance use type: does not use Housing: house Do you feel safe at home: Yes Do you feel safe in your relationship?: Yes
[2024-05-03 22:27] LABS: Bilirubin Negative (Negative); Blood Negative (Negative); Clarity Clear (Clear); Glucose Negative (Negative); Ketones Negative (Negative); Leukocyte Esterase Small (Negative); Nitrite Negative (Negative); Specific Gravity 1.015 (1.005-1.025); Urobilinogen 0.2 mg/dL (Up to 0.2)
[2024-05-03 22:27] LABS: Source Nasopharynx
[2024-05-03 22:48] LABS: Bacteria Moderate HPF (Negative); C & S Indicated? Yes; Epithelial Cells Few HPF (Negative); RBC 0-2 HPF (0-2)
[2024-05-03] MEDS: Albuterol/Ipratropium 3 ML UPD VIAL UPD (22:52)
[2024-05-03 22:54] LABS: Absolute Basophil Count 0.04 10^3/uL (0.0-0.2); Absolute Eosinophil Count 0.13 10^3/uL (0.0-0.7); Absolute Lymphocyte Count 1.65 10^3/uL (1.2-3.4); Absolute Monocyte Count 0.73 10^3/uL (0.1-0.8); Absolute Neutrophil Count 2.77 10^3/uL (1.2-6.7); Basophils % 0.8 %; Eosinophils % 2.4 %; HCT 40.6 % (36.0-46.0); HGB 13.6 g/dL (11.2-15.7); MCH 28.2 pg (27.0-33.0); MCHC 33.5 % (32.0-36.0); MCV 84 fL (80-95); Monocytes % 13.7 %; Neutrophils % 52.1 %; Platelet Count 156 10^3/uL (130-400); RBC 4.82 10^6/uL (3.93-5.22); RDW 13.1 % (11.7-14.6); RDW-SD 40.6 fL; WBC 5.32 10^3/uL (4.4-10.8)
[2024-05-03 23:04] LABS: Anion Gap 11.1 mmol/L (3-11); BUN 10 mg/dL (7-18); CO2 24.9 mmol/L (21.0-32.0); CREATININE 0.8 mg/dL (0.55-1.02); Calcium 8.9 mg/dL (8.5-10.1); Chloride 106 mmol/L (98-107); Estimated GFR 98.48 (mL/min/1.73m2); Glucose 88 mg/dL (74-106); Potassium 3.8 mmol/L (3.5-5.1); Sodium 142 mmol/L (136-145)
[2024-05-03] MEDS: Azithromycin 250 MG TAB 500 MG PO (23:20)
[2024-05-03] MEDS: Cefpodoxime 200 MG TAB PO ×2 (23:21→23:51)
--- NOTE | 2024-05-03 23:38 | DI.VRAD_ITS ---
PROCEDURE INFORMATION: Exam: XR Chest Exam date and time: 05/03/2024 11:01 PM Age: 33 years old Clinical indication: Cough and shortness of breath; Patient HX: SOB, cough TECHNIQUE: Imaging protocol: Radiologic exam of the chest. Views: 2 views. COMPARISON: CR XR RIBS LT W PA LAT CHEST 05/03/2022 2:59 AM FINDINGS: Lungs: Consolidation in the superior segment of the right lower lobe. Pleural spaces: Unremarkable. No pleural effusion. No pneumothorax. Heart/Mediastinum: Unremarkable. No cardiomegaly. Bones/joints: Mild curvature of the thoracic spine convex to the right. IMPRESSION: Right lower lobe pneumonia. Dictated and Authenticated by: Serafin Nagy MD. Ordering:DANIELLE Boswell MD
[2024-05-03 23:45] VITALS: BP 102/85; PULSE 87; RESP 16; O2SAT 99
[2024-05-03 23:49] VITALS: BP 102/85; PULSE 87; RESP 16; TEMP 37.7; O2SAT 99
[2024-05-03] MEDS: Azithromycin 250 MG TAB PO (23:50)
== END 2024-05-03 23:39 | disposition home or self-care (01) ==
PROVIDERS: Student in an Organized Health Care Education/Training Program; Emergency Provider Nurse Practitioner Family
DX: J18.9 Pneumonia, unspecified organism (principal); N39.0 Urinary tract infection, site not specified; F17.290 Nicotine dependence, other tobacco product, uncomplicated
CPT/HCPCS: 36415; 80048; 81025; 87637; 93005; 94640; 99285; 71046; 81003; 81015; 85025; 87086; 93010; 99284; J7620

== ENCOUNTER 2024-05-06 19:20 | Emergency (ER) | payer MEDICAID, SELFPAY ==
[2024-05-06 19:23] VITALS: BP 115/75; PULSE 96; RESP 30; TEMP 36.6; O2SAT 98
[2024-05-06 19:27] VITALS: BP 115/75; PULSE 96; RESP 30; TEMP 36.6; O2SAT 98
--- NOTE | 2024-05-06 19:30 | DI.RAD_ITS ---
Exam(s) XR CHEST 2V PA LATERAL EXAM: XR CHEST 2V PA LATERAL CLINICAL HISTORY: cough, PNA TECHNIQUE: 2D digital imaging was performed. Two views. COMPARISON: CR,XR XR CHEST 2V PA LATERAL from 05/03/2024 FINDINGS: HEART: Normal size. Aorta: Not dilated. PULMONARY VASCULATURE: Normal. MEDIASTINUM: Unremarkable. LUNGS: Clear. PLEURAL SPACE: No pleural effusion or pneumothorax. BONE:Unremarkable for age. SOFT TISSUES: Unremarkable. IMPRESSION: No acute abnormality. DATA REPOSITORY: RADIATION DOSE DELIVERED:
--- NOTE | 2024-05-06 19:34 | ED.GENADUL_ITS ---
Discharge Plan Disposition Patient Disposition: Home Condition: Stable Discharge Details Clinical Impression: Pneumonia Primary Care Provider: Unknown,Unknown ED Provider: Shan Barclay Home Meds and New Rx's Prescriptions: Continued cefpodoxime 200 mg tablet 200 mg PO BID Qty: 10 0RF Rx Instructions: must administer with a meal/food Discharge Instructions Instructions: Community-acquired pneumonia in adults, Albuterol, Prochlorperazine Additional Instructions: You were seen in the emergency department for your continued pneumonia symptoms, you are having some nausea and diarrhea from the antibiotics most likely, your labs are all reassuring and your chest x-ray shows no acute worsening of your pneumonia, I have provided you with an albuterol inhaler to go home with as well as some nausea medicine called prochlorperazine to help with the nausea from antibiotics. Please use therapeutic dosing of Tylenol (acetamenophen) & Advil (ibuprofen) in an alternating fashion as follows: Take 1000mg of Tylenol every 6 hours without missing doses- that is 4 times per day. [place] in between the Tylenol dosings, take 400-600mg of Advil also on a 6 hour schedule, that is also 4 times per day. The daily maximum dosing of Tylenol is 4000mg, and the daily maximum dosing of Advil is 2400mg. This is safe to do for weeks. Please note that some common cold medications & prescription pain medications may contain acetamenophen and you need to read OTC drug labels and factor that in to maximum daily dosings. Please return to the emergency department for continuing to worsen despite treatment, severe respiratory distress, intractable nausea or vomiting and inability to tolerate p.o. intake Discharge Data Discharge Date/Time-TO BE ENTERED AT DEPARTURE: 05/06/24 21:28 HPI General Date/Time Provider Initiated Documentation: 05/06/24 19:34 . HPI Narrative: 33 year-old female presents to ED today by POV/ambulating with her spouse and child with a chief complaint of recheck for pneumonia with onset of diagnosis 3 days ago, on azithromycin and cefpodoxime. Quality described as nausea, diarrhea attributed to ABX use, having shortness of breath, fatigue, palpitations, no radiation to intractable vomiting, profound lethargy, severe shortness of breath, overt chest pain, abdominal pain, high fevers. Severity is described as severe. Palliating factors include taking ABX as prescribed, taking OTC analgesics intermittently. Provoking factors include nothing specific. Patient not anticoagulated. Related Data Home Medications ?Medication ?Instructions ?Recorded ?Confirmed cefpodoxime 200 mg tablet 200 mg PO BID #10 tabs 05/03/24 Previous Rx's ?Medication ?Instructions ?Recorded cefpodoxime 200 mg tablet 200 mg PO BID #10 tabs 05/03/24 Allergies Allergy/AdvReac Type Severity Reaction Status Date / Time omeprazole AdvReac Intermediate rash/swelling Unverified 05/03/24 21:37 in tongue/dizzy valerian AdvReac Intermediate stomach Unverified 05/03/24 21:37 issues amoxicillin AdvReac Mild tongue Unverified 05/03/24 21:37 itchy General Stated Complaint: RespSymp RUTH: 3 Review of Systems All systems reviewed & are unremarkable except as noted in HPI and below Exam Narrative Exam Narrative: GENERAL APPEARANCE: Well-nourished, non-toxic, awake and alert, atraumatic, no acute distress. SKIN: Warm, pink, diaphoretic, intact, without rashes/lesions/ulcerations. HEAD: Normocephalic, atraumatic, normal hair distribution for gender/age. EYES: Normal conjunctiva, no exudates on lids/lashes. ENT: Nares patent, no circumoral cyanosis, no facial swelling NECK: Supple, trachea midline, painless cervical ROM. LUNGS/CHEST: Lungs CTA bilaterally-no rhonchi/rales/wheezes diffusely, non- labored respirations, normal A/P diameter, symmetrical expansion, no chest wall deformity HEART (CV/PV): Regular rate and rhythm without murmur, no peripheral edema, no JVD. ABDOMEN: Soft, non-distended, no guarding, no tenderness. MSK: Normal ROM, no swelling/deformity to bilateral UEs or LEs, moving all extremities without weakness, no cyanosis, spine midline without tenderness, normal curvature. NEURO: Mental Status AAOx4 - alert to person, place, time, events No facial droop, no forehead involvement. Motor: No focal weakness - strength 5/5 in bilateral UEs and LEs, proximal and distal, symmetric. Sensory: sensation intact to light touch globally. Gait normal: patient ambulated without ataxia into ED room. PSYCH: euthymic, cooperative, pleasant, appropriate speech Course Vital Signs Vital signs: Vital Signs Temperature 36.6 C 05/06/24 19:23 Pulse 96 H 05/06/24 19:23 Respiratory Rate 30 H 05/06/24 19:23 Blood Pressure 115/75 05/06/24 19:23 Pulse Oximetry 98 05/06/24 19:23 Temperature 36.6 C 05/06/24 19:27 Pulse 96 H 05/06/24 19:27 Respiratory Rate 30 H 05/06/24 19:27 Respiratory Effort Normal 05/06/24 19:27 Blood Pressure 115/75 05/06/24 19:27 Blood Pressure Position Sitting 05/06/24 19:27 Pulse Oximetry 98 05/06/24 19:27 Pain Level 7 05/06/24 19:27 Medical Decision Making This dictation utilizes [id number] dictation software and may contain unedited grammatical errors. 33 year-old female presents to ED today by POV/ambulating with her spouse and child with a chief complaint of recheck for pneumonia with onset of diagnosis 3 days ago, on azithromycin and cefpodoxime. Quality described as nausea, diarrhea attributed to ABX use, having shortness of breath, fatigue, palpitations, no radiation to intractable vomiting, profound lethargy, severe shortness of breath, overt chest pain, abdominal pain, high fevers. Severity is described as severe. Palliating factors include taking ABX as prescribed, taking OTC analgesics intermittently. Provoking factors include nothing specific. Patients' medical history: Negative, otherwise healthy. Family and social history: Noncontributory. Pertinent exam findings / vital signs include lungs CTA, benign abdomen, mild increased work of breathing without respiratory distress, tolerating p.o. intake, neuro intact, afebrile. Differential / pathologies of concern include pneumonia, myocarditis, antibiotic side effects, not sepsis. Diagnostic studies of: -CBC, CMP, lactate, troponin, procalcitonin, chest x-ray. -CBC is benign -CMP no actionable abnormality -Troponin negative do not suspect myocarditis -Procalcitonin and lactate negative do not suspect sepsis -Chest x-ray shows interval improvement with no acute cardiopulmonary pathology Interventions of: -Provided continuous nebulizer, 1 dose dexamethasone, ketorolac, Compazine and Tylenol, albuterol inhaler to go as well as Compazine tablets to help with symptomatic nausea at home. ED Course/Assessment/Plan: 33-year-old female presents with recheck for pneumonia, having mild shortness of breath, nausea and diarrhea that she attributes to antibiotic use, laboratory workup is benign for any acute worsening of her condition, chest x-ray shows interval improvement, I did provide her with some symptomatic treatments of a breathing treatment, dexamethasone and nausea medicine to help with her antibiotic side effects. I counseled her on continuing Tylenol and ibuprofen at home and using inhaler for mild shortness of breath as needed as well as the Compazine tablets to go, strict return criteria for any severe increase in respiratory distress, intractable nausea or vomiting, other emergent concerns. Findings not consistent with sepsis, hypoxic respiratory failure, myocarditis. Disposition of pneumonia. Patient verbalized understanding of the plan and return to ED criteria and engaged in shared decision making. Medical Records Medical records reviewed: Yes I reviewed the patient's medical records. Imaging Data Radiologic Study: Attestation: I personally reviewed and interpreted this imaging study as follows: Imaging: X-Ray Radiologist's impression: Exam: XR Chest Exam date and time: 05/06/2024 20:20 Age: 33 years old Clinical indication: Other: Cough, pna TECHNIQUE: Imaging protocol: Radiologic exam of the chest. Views: 2 views. COMPARISON: CR XR CHEST 2V PA LATERAL 05/03/2024 23:01 FINDINGS: Lungs: No consolidation. Pleural spaces: No pleural effusion. No pneumothorax. Heart/Mediastinum: No cardiomegaly. Bones/joints: No acute fracture. IMPRESSION: No acute cardiopulmonary pathology. Dictated and Authenticated by: Drea Pringle MD. Lab Data Lab results reviewed: Yes I reviewed the patient's lab results. Labs: Laboratory Tests Range/Units 05/06/24 19:47 WBC (4.4-10.8) 10^3/uL 7.57 RBC (3.93-5.22) 10^6/uL 4.86 Hgb (11.2-15.7) g/dL 13.7 Hct (36.0-46.0) % 41.4 MCV (80-95) fL 85 MCH (27.0-33.0) pg 28.2 MCHC (32.0-36.0) % 33.1 RDW (11.7-14.6) % 13.0 Plt Count (130-400) 10^3/uL 210 MPV (8.0-11.0) fL 11.0 Immature Gran % % 0.3 Neutrophils % % 55.2 Lymphocytes % % 31.2 Monocytes % % 9.6 Eosinophils % % 3.0 Basophils % % 0.7 Nucleated RBC % (0.0-0.3) % 0.0 Absolute Neutrophils (1.2-6.7) 10^3/uL 4.18 Absolute Lymphocytes (1.2-3.4) 10^3/uL 2.36 Absolute Monocytes (0.1-0.8) 10^3/uL 0.73 Absolute Eosinophils (0.0-0.7) 10^3/uL 0.23 Absolute Basophils (0.0-0.2) 10^3/uL 0.05 VBG Lactate (0.6-1.4) mmol/L 1.4 Sodium (136-145) mmol/L 143 Potassium (3.5-5.1) mmol/L 4.0 Chloride (98-107) mmol/L 107 Carbon Dioxide (21.0-32.0) mmol/L 24.5 Anion Gap (3-11) mmol/L 11.5 H BUN (7-18) mg/dL 17 Creatinine (0.55-1.02) mg/dL 0.8 Est GFR (CKD-EPI 2020) (mL/min/1.73m2) 98.48 Glucose (74-106) mg/dL 91 Calcium (8.5-10.1) mg/dL 9.1 Total Bilirubin (0.2-1.0) mg/dL 0.27 AST (15-37) U/L 13 L ALT (14-59) U/L 21 Alkaline Phosphatase (46-116) U/L 76 Troponin I (<or=51) ng/L 5 Total Protein (6.4-8.2) g/dL 7.5 Albumin (3.4-5.0) g/dL 3.7 Procalcitonin ng/mL < 0.05 Quality:SDOH Health Related Social Needs: Health related social needs transportation insecurity( Z59.82) Health related social needs details Patient reports th at she and her do not drive, that their neighbor is the sole source of transportation. PFSH All Active Problems (Updated 05/06/24 @ 21:19 by RUTH ANN Deleon) UTI (urinary tract infection) (Acute) Pneumonia (Acute) Heavy menstrual bleeding (Acute) Light-headedness (Acute) Social History Smoking/Tobacco Use Status: Current-Occasional Tobacco Type: cigars Smoking risk assessment performed?: Yes Alcohol Intake: current Alcohol Intake frequency: holidays/special occasions only Drug use: Never Substance use type: does not use Housing: house Do you feel safe at home: Yes Do you feel safe in your relationship?: Yes
[2024-05-06 19:57] LABS: Lactate 1.4 mmol/L (0.6-1.4)
[2024-05-06] MEDS: Ketorolac 15 MG/ML VIAL IVP (19:58)
[2024-05-06] MEDS: Albuterol/Ipratropium 3 ML UPD VIAL 9 ML UPD (19:58)
[2024-05-06] MEDS: Dexamethasone 10 MG/ML VIAL IVP (19:58)
[2024-05-06] MEDS: ACETAMINOPHEN 1,000 MG/100 ML BAG 400 MG IVPB (19:58)
[2024-05-06] MEDS: Prochlorperazine 10 MG/2 ML VIAL 5 MG IVP (19:58)
[2024-05-06 20:00] LABS: Abs Immature Grans 0.02 10^3/uL (0.0-0.06); Absolute Basophil Count 0.05 10^3/uL (0.0-0.2); Absolute Eosinophil Count 0.23 10^3/uL (0.0-0.7); Absolute Lymphocyte Count 2.36 10^3/uL (1.2-3.4); Absolute Monocyte Count 0.73 10^3/uL (0.1-0.8); Absolute Neutrophil Count 4.18 10^3/uL (1.2-6.7); Basophils % 0.7 %; HCT 41.4 % (36.0-46.0); HGB 13.7 g/dL (11.2-15.7); Immature Grans % 0.3 %; Lymphocytes % 31.2 %; MCH 28.2 pg (27.0-33.0); MCHC 33.1 % (32.0-36.0); MCV 85 fL (80-95); Monocytes % 9.6 %; Neutrophils % 55.2 %; Platelet Count 210 10^3/uL (130-400); RBC 4.86 10^6/uL (3.93-5.22); RDW-SD 40.6 fL; WBC 7.57 10^3/uL (4.4-10.8)
[2024-05-06 20:18] LABS: ALT 21 U/L (14-59); AST 13 U/L (15-37); Albumin 3.7 g/dL (3.4-5.0); Alkaline Phosphatase 76 U/L (46-116); Anion Gap 11.5 mmol/L (3-11); BUN 17 mg/dL (7-18); Bilirubin, Total 0.27 mg/dL (0.2-1.0); CO2 24.5 mmol/L (21.0-32.0); CREATININE 0.8 mg/dL (0.55-1.02); Calcium 9.1 mg/dL (8.5-10.1); Chloride 107 mmol/L (98-107); Estimated GFR 98.48 (mL/min/1.73m2); Glucose 91 mg/dL (74-106); Sodium 143 mmol/L (136-145); Total Protein 7.5 g/dL (6.4-8.2); Troponin I 5 ng/L (<or=51)
[2024-05-06 20:33] LABS: Procalcitonin < 0.05 ng/mL
[2024-05-06 21:09] VITALS: BP 115/75; PULSE 93; RESP 20; O2SAT 96
[2024-05-06] MEDS: Prochlorperazine 10 MG TAB 40 MG PO (21:25)
[2024-05-06] MEDS: Albuterol HFA 8 GM 60 PUFF INH IH (21:25)
--- NOTE | 2024-05-06 21:40 | DI.VRAD_ITS ---
PROCEDURE INFORMATION: Exam: XR Chest Exam date and time: 05/06/2024 20:20 Age: 33 years old Clinical indication: Other: Cough, pna TECHNIQUE: Imaging protocol: Radiologic exam of the chest. Views: 2 views. COMPARISON: CR XR CHEST 2V PA LATERAL 05/03/2024 23:01 FINDINGS: Lungs: No consolidation. Pleural spaces: No pleural effusion. No pneumothorax. Heart/Mediastinum: No cardiomegaly. Bones/joints: No acute fracture. IMPRESSION: No acute cardiopulmonary pathology. Dictated and Authenticated by: Drea Pringle MD. Ordering:GIRMA Torrez MD
== END 2024-05-06 21:28 | disposition home or self-care (01) ==
PROVIDERS: Emergency Provider Physician Assistant
DX: J18.9 Pneumonia, unspecified organism (principal)
CPT/HCPCS: 36415; 80053; 84145; 94640; 96365; 96375; 99285; 71046; 83605; 84484; 85025; J0131; J0780; J1100; J1885; J7620

== ENCOUNTER 2024-05-14 06:24 | Emergency (ER) | payer MEDICAID, SELFPAY ==
[2024-05-14 06:28] VITALS: BP 171/91; PULSE 95; RESP 20; TEMP 36.2; O2SAT 98
--- NOTE | 2024-05-14 06:30 | ED.GENADUL_ITS ---
Discharge Plan Disposition Patient Disposition: Home Condition: Stable Discharge Details Clinical Impression: Infected dental caries Primary Care Provider: Unknown,Unknown ED Provider: Aldair Ac and New Rx's Prescriptions: New clindamycin HCl 150 mg capsule 450 mg PO TID Qty: 50 0RF Discharge Instructions Instructions: Tooth Abscess ED, Tooth Decay ED Additional Instructions: You have a large cavity in your tooth which is likely infected. You may alternate ibuprofen 600 mg with acetaminophen 1000 mg every 4 hours. Do not use more than directed. You may use the benzocaine as we discussed every couple of hours as needed. Rinse and spit with warm salt water. Take the antibiotic as directed. You have been provided a list of dentists in the area that you need to call for an appointment. Return to the ED for any difficulty breathing, inability to swallow, increasing facial swelling or redness, fever, other concerns. HPI General Mode of arrival: ambulatory . Date/Time Provider Initiated Documentation: 05/14/24 06:27 . Limitations to Documentation: no limitations . Information obtained by: patient and RN notes reviewed . HPI Narrative: Patient presents to ED with right-sided tooth pain. Patient has been seen here earlier in the month with cough and diagnosis of pneumonia. For the last week she has been experiencing right lower tooth pain which has been getting worse. She has not been able to get into a dentist. Her respiratory symptoms are improved and she did finish the cefpodoxime. She has been using acetaminophen, ibuprofen, Orajel and HurriCaine spray to try to control her tooth pain. No fever that she is aware of. She does report allergies to the penicillins. Related Data Home Medications ?Medication ?Instructions ?Recorded ?Confirmed clindamycin HCl 150 mg capsule 450 mg (3 x 150 mg) PO TID #50 caps 05/14/24 Previous Rx's ?Medication ?Instructions ?Recorded clindamycin HCl 150 mg capsule 450 mg (3 x 150 mg) PO TID #50 caps 05/14/24 Allergies Allergy/AdvReac Type Severity Reaction Status Date / Time omeprazole AdvReac Intermediate rash/swelling Unverified 05/14/24 06:30 in tongue/dizzy valerian AdvReac Intermediate stomach Unverified 05/14/24 06:30 issues amoxicillin AdvReac Mild tongue Unverified 05/14/24 06:30 itchy General Stated Complaint: DentalOral RUTH: 4 Review of Systems Narrative: Per HPI Exam Narrative Exam Narrative: Const: WDWN female uncomfortable and crying. VS per triage. HEENT: NC/AT. Normal facial exam. No appreciable swelling/erythema to face/neck. Right lower first molar completely decayed down deep. No purulent drainage from the cavity. No gingival abscess noted. Neck: Supple. Trachea midline. Lungs: Normal respiratory effort. Neuro: A+O x 3. Normal speech, mentation, gait. Cranial nerves II - XII grossly intact. No gross motor or sensory deficit. Course Vital Signs Vital signs: Vital Signs Temperature 97.1 F L 05/14/24 06:28 Pulse 95 H 05/14/24 06:28 Respiratory Rate 20 05/14/24 06:28 Blood Pressure 171/91 H 05/14/24 06:28 Pulse Oximetry 98 05/14/24 06:28 Temperature 97.1 F L 05/14/24 06:28 Temperature Source Temporal Artery Scan 05/14/24 06:28 Pulse 95 H 05/14/24 06:28 Respiratory Rate 20 05/14/24 06:28 Blood Pressure 171/91 H 05/14/24 06:28 Blood Pressure Position Sitting 05/14/24 06:28 Pulse Oximetry 98 05/14/24 06:28 Oxygen Delivery Method Room Air 05/14/24 06:28 Oxygen Flow Rate 0 05/14/24 06:28 Pain Level 10 05/14/24 06:28 Medical Decision Making Patient presenting to ED with right lower dental decay with probable infection. Unable to get to the dentist this week. Recently on cefpodoxime for pneumonia which has improved and she did complete that course of antibiotic. There is no significant facial swelling or erythema and no gingival abscess. She does report allergy to penicillins. She will be started on clindamycin 4 to 50 mg 3 times a day. She is given a list of area dentist to contact for follow-up. Instructed to alternate ibuprofen 600 mg with acetaminophen 1 g every 4 hours. Also provided with benzocaine gel for use on the gum and within the cavity to help with the pain. Return precautions provided. Quality:SDOH Health Related Social Needs: Health related social needs transportation insecurity( Z59.82) Health related social needs details Patient reports th at she and her do not drive, that their neighbor is the sole source of transportation. PFSH All Active Problems (Updated 05/14/24 @ 06:56 by Aldair Ac MD) Infected dental caries (Acute) Heavy menstrual bleeding (Acute) Social History Smoking/Tobacco Use Status: Current-Occasional Tobacco Type: cigars Smoking risk assessment performed?: Yes Alcohol Intake: current Alcohol Intake frequency: holidays/special occasions only Drug use: Never Substance use type: does not use Housing: house Do you feel safe at home: Yes Do you feel safe in your relationship?: Yes
[2024-05-14] MEDS: Clindamycin 150 MG CAP 450 MG PO (06:45)
[2024-05-14] MEDS: Benzocaine 20% Gel 30 GM JAR MM (06:45)
[2024-05-14] MEDS: MORPHine IR 15 MG TAB, 4 TABS/BTL PO (07:14)
== END 2024-05-14 07:14 | disposition home or self-care (01) ==
PROVIDERS: Emergency Provider Emergency Medicine
DX: R68.84 Jaw pain (principal); K04.7 Periapical abscess without sinus; Z59.82 Transportation insecurity; F17.200 Nicotine dependence, unspecified, uncomplicated
CPT/HCPCS: 99283

== ENCOUNTER 2024-06-24 06:23 | Emergency (ER) | payer MEDICAID, SELFPAY ==
[2024-06-24 06:26] VITALS: BP 131/83; PULSE 82; RESP 16; TEMP 36.7
--- NOTE | 2024-06-24 06:49 | ED.GENADUL_ITS ---
Discharge Plan Disposition Patient Disposition: Home Condition: Good Discharge Details Clinical Impression: Dental infection Primary Care Provider: Unknown,Unknown ED Provider: Alba Singh Home Meds and New Rx's Prescriptions: New clindamycin HCl 150 mg capsule 450 mg PO Q8H 7 Days Qty: 63 0RF Continued codeine-guaifenesin 10-100 mg/5 mL liquid 5 ml PO Q6H Patient Comments: TAKE 10ML BY MOUTH EVERY 6 HOURS NEEDED FOR 7 DAYS FOR COUGH Discharge Instructions Instructions: Tooth Abscess ED Additional Instructions: Take the antibiotic every 8 hours for the next 7 days. You can use tylenol and ibuprofen over the counter for pain; follow the directions on the bottle. Call your dentist this morning to see if you can move up your appointment; otherwise keep your appointment with your dentist on 07/01. Please also call your primary care doctor this morning to schedule an appointm ent for within the next 72 hours to followup on your visit here. Return to the emergency department for new or worsening symptoms including temperature of 100.4F or higher, swelling in your face or neck, difficulty swallowing, vomiting, or if you have any other concerns. Stand Alone Forms: Work Release HPI General Mode of arrival: ambulatory . Date/Time Provider Initiated Documentation: 06/24/24 06:25 . Limitations to Documentation: no limitations . Information obtained by: patient and old records reviewed (ed visit note 05/14/24) . HPI Narrative: 33yo F presenting with right lower dental pain and urinary frequency. Seen in this ED in April and discharged on course of antibiotics for dental infection. Has had recurrent pain in the same spot and felt lump; this spontaneously drained yesterday and she had a foul taste in her mouth. Since this event she had felt chills and reports low grade fever (~99F). No neck pain, facial swelling, or difficulty swallowing. Had not taken anything at home for pain. Worried she may have sepsis. She has also had some urinary frequency and urgency similar to prior UTIs; no dysuria, hematuria, suprapubic pain, or flank pain. Otherwise in her usual state of health with no rash, nausea, vomiting, abdominal pain, or other concerns. Related Data Home Medications ?Medication ?Instructions ?Recorded ?Confirmed clindamycin HCl 150 mg capsule 450 mg (3 x 150 mg) PO Q8H 7 days 06/24/24 #63 caps codeine 10 mg-guaifenesin 100 mg/5 5 ml PO Q6H 06/24/24 06/24/24 mL oral liquid Previous Rx's ?Medication ?Instructions ?Recorded clindamycin HCl 150 mg capsule 450 mg (3 x 150 mg) PO Q8H 7 days 06/24/24 #63 caps Allergies Allergy/AdvReac Type Severity Reaction Status Date / Time omeprazole AdvReac Intermediate rash/swelling Verified 06/24/24 06:32 in tongue/dizzy valerian AdvReac Intermediate stomach Verified 06/24/24 06:32 issues amoxicillin AdvReac Mild tongue Verified 06/24/24 06:32 itchy General Stated Complaint: DentalOral RUTH: 4 Review of Systems Narrative: see HPI Exam Narrative Exam Narrative: General: Alert, well appearing, well nourished, in no acute distress. Head: Normocephalic, atraumatic Neck: Trachea midline, ?Neck supple. ENT: ?MMM.? Uvula midline. Poor denition. Lesion at gumline on lingual surface near #30, #29 consistent with drained abscess. No evident fluctance, no additional material expressed with gentle pressure. Cardiac: ?RRR, no murmurs appreciated Resp: No respiratory distress. CTAB. Abd: ?Soft, non-distended, nontender : ?No suprapubic tenderness. No CVA tenderness. Extremities: ?No deformities.? No peripheral edema. Neurologic: GCS 15. ? Moves all extremities freely against gravity Course Vital Signs Vital signs: Vital Signs Temperature 36.7 C 06/24/24 06:26 Pulse 82 06/24/24 06:26 Respiratory Rate 16 06/24/24 06:26 Blood Pressure 131/83 06/24/24 06:26 Temperature 36.7 C 06/24/24 06:26 Temperature Source Temporal Artery Scan 06/24/24 06:26 Pulse 82 06/24/24 06:26 Respiratory Rate 16 06/24/24 06:26 Blood Pressure 131/83 06/24/24 06:26 Blood Pressure Position Sitting 06/24/24 06:26 Oxygen Delivery Method Room Air 06/24/24 06:26 Oxygen Flow Rate 0 06/24/24 06:26 Pain Level 5 06/24/24 06:26 Medical Decision Making 33yo F presenting with right lower dental pain and urinary frequency. Seen in this ED in April and discharged on course of antibiotics for dental infection; pain returned in the same spot and abscess drained spontaneously y esterday. Since then has has chills and is worried she may have sepsis; also reports urinary frequency and is concerned about possible UTI. She does have a dental appointment scheduled for 07/01/24. Normal vital signs on arrival, well appearing on exam. Not septic. Oral exam consistent reported spontaneously drained dental abscess; no palpable fluctuance at this time and unable to express any additional material. Not concerning for Jensen's, bucchal space infection, deep space neck infection, or other life threatening process; no indication for labs or CT imaging. Will prescribe 7 day course of clindamycin (pt with pxn allergy) and instruct her to attempt to move up dental appointment if possible. Given urinary symptoms well also get UA; exam not concerning for pyleonephritis. UA not suggestive of infection. Discharged home to followup with PCP and dentist. Discharge instructions and return precautions were reviewed with patient who verbalized understanding. All questions were answered and she is in full agreement with the plan. Medical Records Medical records reviewed: Yes I reviewed the patient's medical records. Lab Data Lab results reviewed: Yes I reviewed the patient's lab results. Labs: Laboratory Tests Range/Units 06/24/24 06:49 Urine Color (Yellow) Yellow Urine Clarity (Clear) Sl Cloudy Urine pH (5-8) 5.5 Ur Specific [place] (1.005-1.025) 1.020 Urine Protein (Neg-Trace) mg/dL Negative Urine Ketones (Negative) mg/dL Negative Urine Blood (Negative) Negative Urine Nitrite (Negative) Negative Urine Bilirubin (Negative) Negative Urine Urobilinogen (Up to 0.2) mg/dL 0.2 Ur Leukocyte Esterase (Negative) Small H Urine RBC (0-2) HPF 0-2 Urine WBC (0-5) HPF 5-10 Ur Epithelial Cells (Negative) HPF Many Urine Crystals (Negative) HPF Negative Urine Bacteria (Negative) HPF Few Urine Casts (Negative) LPF Negative Urine Mucus (Negative) Trace Ur Culture Indicated? No/Sq. Contamination Urine Glucose (Negative) mg/dL Negative Quality:SDOH Health Related Social Needs: Health related social needs problems related to housin g/economic circumstances (Z59.89), problems finding work (Z56.9), feeling lonely/isolated (Z60.8) Health related social needs details Patient reports th at she and her do not drive, that their neighbor is the sole source of transportation. PFSH All Active Problems (Updated 06/24/24 @ 06:52 by Alba Singh MD) Dental infection (Acute) Social History Smoking/Tobacco Use Status: Current-Occasional Tobacco Type: cigars Smoking risk assessment performed?: Yes Alcohol Intake: current Alcohol Intake frequency: holidays/special occasions only Drug use: Never Substance use type: does not use Housing: house Do you feel safe at home: Yes Do you feel safe in your relationship?: Yes
[2024-06-24] MEDS: Clindamycin 150 MG CAP 450 MG PO (06:53)
[2024-06-24 07:08] LABS: Bilirubin Negative (Negative); Blood Negative (Negative); Clarity Sl Cloudy (Clear); Glucose Negative (Negative); Ketones Negative (Negative); Leukocyte Esterase Small (Negative); Nitrite Negative (Negative); Urobilinogen 0.2 mg/dL (Up to 0.2); pH 5.5 (5-8)
[2024-06-24 07:16] LABS: Bacteria Few HPF (Negative); C & S Indicated? No/Sq. Contamination; Casts Negative LPF (Negative); Crystals Negative HPF (Negative); Epithelial Cells Many HPF (Negative); Mucus Trace (Negative); RBC 0-2 HPF (0-2)
== END 2024-06-24 07:26 | disposition home or self-care (01) ==
PROVIDERS: Emergency Provider Student in an Organized Health Care Education/Training Program
DX: K04.7 Periapical abscess without sinus (principal); F17.290 Nicotine dependence, other tobacco product, uncomplicated
CPT/HCPCS: 81025; 99283; 81003; 81015

== ENCOUNTER 2024-07-10 10:29 | Emergency (ER) | payer MEDICAID, SELFPAY ==
[2024-07-10] VITALS (21 sets, daily range): BP systolic 92–143; BP diastolic 56–110; PULSE 66–127; RESP 10–30; TEMP 34.6–36.6; O2SAT 93–100
--- NOTE | 2024-07-10 10:30 | DI.CT_ITS ---
Exam(s) CT ABDOMEN PELVIS W EXAM: CT ABDOMEN PELVIS W CLINICAL HISTORY: lower abdominal pain, n/v. TECHNIQUE: Imaging Protocol: Axial computed tomography images with coronal and sagittal reformatted images were created and reviewed CONTRAST MATERIAL: Intravenous: Omnipaque 350 Contrast volume:80 ml Oral: no COMPARISON: CT CT BRAIN NECK CTA from 08/10/2023 FINDINGS: ABDOMEN and PELVIS: Lung Bases: No acute findings. Liver: Normal density. No suspicious mass. Gallbladder and biliary tract: No radiodense calculus. No wall thickening or pericholecystic fluid. No biliary dilation. Pancreas: Normal density. No abnormal calcifications or inflammatory process. No evidence of mass. Spleen: Normal. Kidneys: Normal size, contour and axis. No radiodense stones. No obstructive uropathy. No suspicious masses seen. Adrenal glands: No masses seen. Vasculature: Abdominal aorta non-dilated. Soft tissues: Unremarkable. Bladder: Nearly empty. No gross wall thickening. No calculi.No focal mass. Bowel: The stomach is empty. There are mildly dilated small bowel loops which are fluid filled. The re are more dilated proximally but there is no transition point. There is also some some cough of fl uid in the ascending and transverse colon. No bowel wall thickening. No evidence of appendicitis. Peritoneal cavity: No ascites. No focal collection. No mesenteric inflammatory response. No free air . Bones: Unremarkable for age. Reproductive organs: Unremarkable. Lymph nodes: No pathologically enlarged lymph nodes. IMPRESSION:: Mildly dilated fluid-filled small bowel without transition point. Findings consistent with mild generalized ileus. RADIATION DOSE DELIVERED: Total DLP DATA REPOSITORY: All CT scans at this facility are submitted to the National Radiology Data Registry (NRDR) Dose Index Registry (DIR) with the [employer] ([employer]). RADIATION OPTIMIZATION: All CT scans at this facility use at least one of these dose optimization te chniques: automated exposure control; mA and/or kV adjustment per patient size (includes targeted exa ms where dose is matched to clinical indication); or iterative reconstruction.
--- NOTE | 2024-07-10 10:44 | W.ED.GENAD ---
Discharge Plan Disposition Patient Disposition: Home Condition: Stable Discharge Details Clinical Impression: Abdominal pain, Nausea vomiting and diarrhea Primary Care Provider: Dahlia Ochoa ED Provider: Drew Payton Home Meds and New Rx's Prescriptions: New prochlorperazine maleate [Compazine] 10 mg tablet 10 mg PO TID PRN (Reason: nausea and vomiting) Qty: 30 0RF Held codeine-guaifenesin 10-100 mg/5 mL liquid 5 ml PO Q6H Hold Instructions: Resume on 07/17/24. hold this if you are using the compazine for nausea Patient Comments: TAKE 10ML BY MOUTH EVERY 6 HOURS NEEDED FOR 7 DAYS FOR COUGH Discharge Instructions Additional Instructions: Your CAT scan shows that you have a gastroenteritis that will likely pass on its own If you are still having diarrhea return with a specimen to the lab to check for C. difficile Follow-up with your primary care provider this week especially if symptoms continue If you feel more ill, have severe worsening pain or persistent vomiting return to the emergency department for reevaluation HPI General Mode of arrival: EMS. Date/Time Provider Initiated Documentation: 07/10/24 10:37. Limitations to Documentation: no limitations. Information obtained by: patient. History of Present Illness 33 year old F presents to the emergency department with the chief complaint of n/v/diarrhea, described as moderate, Patient started experiencing this hour(s) (4) and it has been intermittent. No relieving factors improve symptom(s), No exacerbating factors reported . Patient notes fever/chills and nausea/vomiting; denies chest pain and shortness of breath. Patient did receive the following treatments prior to arrival, none Related Data Home Medications ?Medication ?Instructions ?Recorded ?Confirmed codeine 10 mg-guaifenesin 100 mg/5 5 ml PO Q6H 06/24/24 06/24/24 mL oral liquid prochlorperazine maleate 10 mg 10 mg PO TID PRN nausea and 07/10/24 tablet (Compazine) vomiting #30 tabs Previous Rx's ?Medication ?Instructions ?Recorded prochlorperazine maleate 10 mg 10 mg PO TID PRN nausea and 07/10/24 tablet (Compazine) vomiting #30 tabs Allergies Allergy/AdvReac Type Severity Reaction Status Date / Time omeprazole AdvReac Intermediate rash/swelling Verified 06/24/24 06:32 in tongue/dizzy valerian AdvReac Intermediate stomach Verified 06/24/24 06:32 issues amoxicillin AdvReac Mild tongue Verified 06/24/24 06:32 itchy General Stated Complaint: Nausea/Vomit/Diar RUTH: 3 Review of Systems All systems reviewed & are unremarkable except as noted in HPI and below Constitutional Constitutional: Denies chills, Denies fever(s) and Denies weakness Cardiovascular Cardiovascular: Denies chest pain and Denies dyspnea Respiratory Respiratory: Denies cough and Denies dyspnea Gastrointestinal Gastrointestinal: Reports abdominal pain, Reports nausea and Reports vomiting Musculoskeletal Musculoskeletal: Denies joint swelling Neurologic Neurologic: Denies weakness Exam Const General: no acute distress Orientation: alert HENMT Head: normal to inspection Ears: external ears normal General nose exam: external nose normal Mouth: moist mucous membranes Eyes General: appearance normal, both eyes and all related structures Neck Neck: normal visual inspection Resp Effort & Inspection: normal respiratory effort and able to speak in complete sentences Cardio Rate: regular rate GI Palpation: soft, not firm, no guarding and tender Skin General skin exam: no rashes or lesions noted Neuro General: patient alert and patient oriented x3 Extrem General: normal to inspection Psych Mental Status: mental status grossly normal Course Vital Signs Vital signs: Vital Signs Temperature 36.6 C 07/10/24 10:31 Pulse 103 H 07/10/24 10:31 Respiratory Rate 18 07/10/24 10:31 Blood Pressure 143/110 H 07/10/24 10:31 Pulse Oximetry 100 07/10/24 10:31 Temperature 36.3 C L 07/10/24 10:38 Temperature Source Tympanic 07/10/24 10:38 Pulse 94 H 07/10/24 10:38 Respiratory Rate 20 07/10/24 10:38 Blood Pressure 143/110 H 07/10/24 10:38 Blood Pressure Position Supine 07/10/24 10:38 Pulse Oximetry 99 07/10/24 10:38 Oxygen Delivery Method Room Air 07/10/24 10:38 Oxygen Flow Rate 0 07/10/24 10:31 Pain Level 7 07/10/24 10:38 Medical Decision Making 33-year-old female who has been treated for dental infection recently with clindamycin comes in with 4 hours of nausea vomiting and diarrhea and subjective fevers and chills. She denies any chest pain, recent travel, rashes. She is stable on arrival, she says she took Zofran this morning without relief. She says her daughter had a stomach bug recently. She is a soft nondistended abdomen with tenderness in the left lower quadrant and right lower quadrant, no guarding or rebound. I suspect she has a viral gastroenteritis but given recent antibiotics will check C. difficile if she is able to provide a stool sample and check a CBC CMP and lipase and given her tenderness on exam will obtain CT abdomen pelvis to evaluate for possible diverticulitis or appendicitis. Labs okay, 17 otherwise unremarkable, CT shows signs of a mild ileus per the radiologist and also notes small bowel is filled with liquid consistent with likely diarrheal disease which she is noted. She says she can provide a stool sample and discussed that I would like to check for C. difficile. She does not want a wait to provide a sample, I did provide her an outpatient requisition to bring back to the lab to check for C. difficile. She will follow-up with her PCP and return precautions given Differential Diagnosis Differential Diagnosis: colitis, diverticulitis, appendicitis Imaging Data Radiologic Study: Attestation: I personally reviewed and interpreted this imaging study as follows: Imaging: CT Scan Radiologist's impression: FINDINGS: Lungs: Visualized lung bases are clear. Liver: Normal. No mass or intrahepatic biliary ductal dilatation. Gallbladder and biliary ducts: Normal. No calcified stones. No ductal dilation. Pancreas: Normal. No mass or ductal dilation. Spleen: Normal. No splenomegaly. Adrenal glands: Normal. No mass. Kidneys and ureters: Normal. No hydronephrosis, calculus, cyst or mass. Stomach and bowel: Small bowel loops throughout the abdomen are mildly dilated and fluid-filled. No transition. Small amount of fluid within the colon as well. No mass or wall thickening. Appendix: No evidence of appendicitis. Intraperitoneal space: Unremarkable. No free air. No significant fluid collection. Vasculature: Unremarkable. No abdominal aortic aneurysm or significant atherosclerosis. Lymph nodes: No enlarged retroperitoneal or mesenteric lymph nodes. Urinary bladder: No mass or wall thickening. Reproductive: Unremarkable as visualized. Bones/joints: Unremarkable. No acute fracture. No lytic lesion.Soft tissues: Unremarkable. IMPRESSION: Mild generalized ileus Lab Data Lab results reviewed: Yes I reviewed the patient's lab results. Quality:[facility] Health Related Social Needs: Health related social needs problems related to housing/economic circumstances (Z59.89), problems finding work (Z56.9), feeling lonely/isolated (Z60.8) Health related social needs details Patient reports that she and her do not drive, that their neighbor is the sole source of transportation. PFSH All Active Problems (Updated 07/10/24 @ 12:37 by Drew Payton MD) Nausea vomiting and diarrhea (Acute) Abdominal pain (Acute) Dental infection (Acute) Social History Smoking/Tobacco Use Status: Current-Occasional Tobacco Type: cigars Smoking risk assessment performed?: Yes Alcohol Intake: current Alcohol Intake frequency: holidays/special occasions only Drug use: Never Substance use type: does not use Housing: house Do you feel safe at home: Yes Do you feel safe in your relationship?: Yes
[2024-07-10 10:50] LABS: Absolute Eosinophil Count 0.13 10^3/uL (0.0-0.7); Absolute Lymphocyte Count 0.59 10^3/uL (1.2-3.4); Absolute Monocyte Count 1.12 10^3/uL (0.1-0.8); Absolute Neutrophil Count 15.99 10^3/uL (1.2-6.7); Basophils % 0.3 %; Eosinophils % 0.7 %; HCT 46.7 % (36.0-46.0); HGB 15.3 g/dL (11.2-15.7); Immature Grans % 0.6 %; Lymphocytes % 3.3 %; MCH 28.8 pg (27.0-33.0); MCHC 32.8 % (32.0-36.0); MCV 88 fL (80-95); MPV 10.6 fL (8.0-11.0); Monocytes % 6.2 %; Neutrophils % 88.9 %; Platelet Count 235 10^3/uL (130-400); RBC 5.32 10^6/uL (3.93-5.22); RDW 13.8 % (11.7-14.6); RDW-SD 44.7 fL; WBC 17.99 10^3/uL (4.4-10.8)
[2024-07-10] MEDS: Prochlorperazine 10 MG/2 ML VIAL IVP (10:51)
[2024-07-10 10:57] LABS: Absolute Basophil Count 0.05 10^3/uL (0.0-0.2)
[2024-07-10 11:11] LABS: HCG Qual (Serum) Negative
[2024-07-10 11:15] LABS: ALT 16 U/L (14-59); AST 12 U/L (15-37); Albumin 4.3 g/dL (3.4-5.0); Alkaline Phosphatase 77 U/L (46-116); Anion Gap 13.5 mmol/L (3-11); BUN 14 mg/dL (7-18); Bilirubin, Total 0.81 mg/dL (0.2-1.0); CO2 23.5 mmol/L (21.0-32.0); CREATININE 1.3 mg/dL (0.55-1.02); Calcium 9.5 mg/dL (8.5-10.1); Chloride 104 mmol/L (98-107); Glucose 147 mg/dL (74-106); Lipase 26 U/L (<78); Magnesium 1.8 mg/dL (1.8-2.4); Sodium 141 mmol/L (136-145); Total Protein 7.9 g/dL (6.4-8.2)
[2024-07-10 11:21] LABS: COVID-19 PCR Negative (Negative); Influenza A PCR Negative (Negative); Influenza B PCR Negative (Negative); RSV PCR Negative (Negative)
[2024-07-10] MEDS: Normal Saline - Diluent 50 ML VIAL IJ (11:22)
[2024-07-10] MEDS: Omnipaque 350 MG/ML 100 ML BTL IJ (11:25)
[2024-07-10 11:47] LABS: Source Nasopharynx
--- NOTE | 2024-07-10 11:59 | DI.VRAD_ITS ---
PROCEDURE INFORMATION: Exam: CT Abdomen And Pelvis With Contrast Exam date and time: 07/10/2024 11:25 AM Age: 33 years old Clinical indication: Nausea and vomiting; Abdominal pain and other: Lower abdominal pain, n/v TECHNIQUE: Imaging protocol: Computed tomography of the abdomen and pelvis with contrast. Contrast material: OMNI 350; Contrast volume: 80 ml; Contrast route: INTRAVENOUS (IV); COMPARISON: CR XR CHEST 2V PA LATERAL 05/06/2024 8:20 PM FINDINGS: Lungs: Visualized lung bases are clear. Liver: Normal. No mass or intrahepatic biliary ductal dilatation. Gallbladder and biliary ducts: Normal. No calcified stones. No ductal dilation. Pancreas: Normal. No mass or ductal dilation. Spleen: Normal. No splenomegaly. Adrenal glands: Normal. No mass. Kidneys and ureters: Normal. No hydronephrosis, calculus, cyst or mass. Stomach and bowel: Small bowel loops throughout the abdomen are mildly dilated and fluid-filled. No transition. Small amount of fluid within the colon as well. No mass or wall thickening. Appendix: No evidence of appendicitis. Intraperitoneal space: Unremarkable. No free air. No significant fluid collection. Vasculature: Unremarkable. No abdominal aortic aneurysm or significant atherosclerosis. Lymph nodes: No enlarged retroperitoneal or mesenteric lymph nodes. Urinary bladder: No mass or wall thickening. Reproductive: Unremarkable as visualized. Bones/joints: Unremarkable. No acute fracture. No lytic lesion. Soft tissues: Unremarkable. IMPRESSION: Mild generalized ileus Dictated and Authenticated by: Chuy Lechuga MD. Ordering:TIM Russell MD
[2024-07-10] MEDS: Ondansetron O.D.T. 4 MG TABEF PO (13:48)
[2024-07-10 14:28] LABS: C Diff PCR Negative (Negative)
== END 2024-07-10 13:49 | disposition home or self-care (01) ==
PROVIDERS: Emergency Provider Emergency Medicine; PCP Nurse Practitioner Family
DX: R11.2 Nausea with vomiting, unspecified (principal); R19.7 Diarrhea, unspecified; R10.9 Unspecified abdominal pain; F17.290 Nicotine dependence, other tobacco product, uncomplicated
CPT/HCPCS: 80053; 83690; 87493; 87637; 96374; 96375; 99285; 74177; 83735; 84703; 85025; J0780; J3490

== ENCOUNTER 2024-08-19 15:27 | Outpatient (REF) | payer MEDICAID, SELFPAY ==
[2024-08-19 19:36] LABS: Abs Immature Grans 0.02 10^3/uL (0.0-0.06); Absolute Basophil Count 0.04 10^3/uL (0.0-0.2); Absolute Eosinophil Count 0.17 10^3/uL (0.0-0.7); Absolute Lymphocyte Count 2.01 10^3/uL (1.2-3.4); Absolute Monocyte Count 0.59 10^3/uL (0.1-0.8); Absolute Neutrophil Count 4.39 10^3/uL (1.2-6.7); Basophils % 0.6 %; Eosinophils % 2.4 %; HCT 43.6 % (36.0-46.0); HGB 13.8 g/dL (11.2-15.7); Immature Grans % 0.3 %; Lymphocytes % 27.8 %; MCH 28.2 pg (27.0-33.0); MCHC 31.7 % (32.0-36.0); MCV 89 fL (80-95); MPV 11.3 fL (8.0-11.0); Monocytes % 8.2 %; Neutrophils % 60.7 %; Platelet Count 204 10^3/uL (130-400); RDW 13.6 % (11.7-14.6); RDW-SD 44.3 fL; WBC 7.22 10^3/uL (4.4-10.8)
[2024-08-19 20:25] LABS: ALT 21 U/L (14-59); AST 11 U/L (15-37); Albumin 4.2 g/dL (3.4-5.0); Alkaline Phosphatase 73 U/L (46-116); Anion Gap 10.8 mmol/L (3-11); BUN 13 mg/dL (7-18); CO2 25.2 mmol/L (21.0-32.0); CREATININE 0.7 mg/dL (0.55-1.02); Calcium 9.3 mg/dL (8.5-10.1); Chloride 106 mmol/L (98-107); Estimated GFR 115.59 (mL/min/1.73m2); Glucose 88 mg/dL (74-106); Potassium 4.1 mmol/L (3.5-5.1); Sodium 142 mmol/L (136-145); TSH 4.12 uIU/mL (0.36-3.74); Total Protein 7.1 g/dL (6.4-8.2)
[2024-08-20 22:42] LABS: T4, Free 1.4 ng/dL (0.8-2.2)
== END 2024-08-19 15:28 | disposition home or self-care (01) ==
LOC: NCHCN 15:27
PROVIDERS: PCP Nurse Practitioner Family; Visit Provider Nurse Practitioner Family
DX: E02 Subclinical iodine-deficiency hypothyroidism (principal); E55.9 Vitamin D deficiency, unspecified; F41.9 Anxiety disorder, unspecified; R44.0 Auditory hallucinations
CPT/HCPCS: 80053; 84439; 84443; 85025